=== PATIENT | female | born 1940 | race Hispanic/Latino ===

== ENCOUNTER 2018-09-13 09:09 | Emergency (ER) | payer MEDICARE ==
[~2018-09-13] VITALS: Ht 154.9 cm; Wt 67.1 kg
[~2018-09-13 09:09] MED LIST: ANUSOL-HC25 MG RC; CHLORTHALIDONE25 MG PO; FLAGYL500 MG PO; Guaifenesin/Dextromethorphan NG; LEVAQUIN500 MG PO; LISINOPRIL10 MG PO; OMEPRAZOLE40 MG PO; TAMIFLU75 MG PO; TESSALON PERLE100 MG PO
--- OUTSIDE RECORDS SUMMARY | 2018-09-13 09:14 | XMS REPORT | Continuity of Care Document ---
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 Role Phone [facility] [employer] Unavailable Unavailable Problems Problem Status Onset Date Classification Date Reported Comments Source INTERMITTENT SMALL BOWEL OBSTRUCTION, VE Active 03/16/2017 [facility] FLU LIKE SYMTOMS Active 03/16/2017 [facility] J20.9 - "ACUTE BRONCHITIS, UNSPECIFIED" Active 09/05/2016 [facility] Korbel M25.531 - PAIN IN RIGHT WRIST Active 01/26/2016 [facility] Korbel S46.091A - INJ MUSC/TEND THE ROTATOR CUF [facility] - PAIN IN RIGHT SHOULDER Active 09/[facility] M79.642 - PAIN IN LEFT HAND Active 08/23/[facility] 719.41 - JOINT PAIN-SHLD [facility] Acute renal insufficiency Active Problem 04/26/2017 [facility] Dehydration Active Problem 04/26/2017 [facility] Influenza A Active Problem 04/26/2017 [facility] Vomiting and diarrhea Active Problem 04/26/2017 [facility] Final: Pain in right shoulder 09/09/2015 [facility] GERD (Confirmed) Resolved Problem 05/09/2018 [facility]/O: HTN (Confirmed) Resolved Problem 05/09/2018 [facility] LT ELBOW Active [facility] [place] UNSP INTESTNL OBST, UNSP TO PARTIAL V Active [facility] VENTRAL HERNIA WITHOUT OBSTRUCTION OR GA Active [facility] PERSONAL HISTORY OF OTHER SPECIFIED COND Active [facility] Medications Medication Details Route Status Patient Instructions Ordering Provider Order Date Source Hydrocortisone Acetate (Anusol-Hc) 25 Mg Supp.rect Twice A Day Active [facility] 04/24/2017 [facility] Benzonatate (Tessalon Perle) 100 Mg Capsule Three Times A Day Active [facility] 04/23/2017 [facility] Guaifenesin/Dextromethorphan 5 Ml Liqd Every 6 Hours as needed for Cough Active [facility] 04/23/2017 [facility] Levofloxacin (Levaquin) 500 Mg Tablet Daily Active [facility] 04/23/2017 [facility] Metronidazole (Flagyl) 500 Mg Tablet Three Times A Day Active [facility] 04/23/2017 [facility] Oseltamivir Phosphate (Tamiflu) 75 Mg Cap Twice A Day Active [facility] 04/23/2017 [facility] Streptococcus pneumoniae serotype 1 capsular antigen diphtheria QAL099 protein conjugate vaccine / Streptococcus pneumoniae serotype 14 capsular antigen diphtheria IIN690 protein conjugate vaccine / Streptococcus pneumoniae serotype 18C capsular antigen d 0.5 mL, Route: IM, Drug Form: INJ, Daily, Start date: 03/17/17 9:00:00 [employer], Duration: 1 doses or times, Stop date: 03/17/17 9:00:00 CSTNotes: Shake well prior to use (Same as: Prevnar 13) Inactive 03/17/2017 [facility] Saline Flush 0.9% 10 ml, Route: IVP, Drug Form: INJ, Dosing Weight 68.182, kg, PRN, PRN Line Flush, Start date: 03/17/17 0:31:00 [employer], Duration: 30 day, Stop date: 04/16/17 0:30:00 CSTNotes: (Same as: BD Posiflush) No Longer Active 03/17/2017 [facility] Sodium Chloride 0.9% IV 1,000 mL 1,000 mL, Rate: 75 ml/hr, Infuse over: 13.3 hr, Route: IV, Dosing Weight 68.182 kg, Total Volume: 1,000, Start date: 03/17/17 0:31:00 [employer], Duration: 30 day, Stop date: 04/16/17 0:30:00 [employer], 1.73, m2 No Longer Active 03/17/2017 [facility] Ondansetron 4 mg, 2 mL, Route: IVP, Drug form: INJ, Q6H, Dosing Weight 68.182, kg, PRN Nausea & Vomiting, Start date: 03/17/17 0:31:00 [employer], Duration: 30 day, Stop date: 04/16/17 0:30:00 CSTNotes: (Same as: Zofran) MEDICATION WASTE Product Size: 4 mg Product Wasted: ___ mg No Longer Active 03/17/2017 [facility] Acetaminophen 325 MG / Hydrocodone Bitartrate 5 MG Oral Tablet 2 tab, Route: PO, Drug Form: TAB, Dosing Weight 68.182, kg, Q4H, PRN Pain Score 7-10, Start date: 03/17/17 0:31:00 [employer], Duration: 30 day, Stop date: 04/16/17 0:30:00 CSTNotes: (Same as: Mooers 325/5) Do not exceed 4gm/day of acetaminophen. No Longer Active 03/17/2017 [facility] Morphine 2 mg, 1 mL, Route: IVP, Drug form: SOLN, Q4H, Dosing Weight 68.182, kg, PRN Pain Score 7-10, Start date: 03/17/17 0:31:00 [employer], Duration: 30 day, Stop date: 04/16/17 0:30:00 [employer] No Longer Active 03/17/2017 [facility] lisinopril 10 mg oral tablet 10 mg=1 tab, PO, Daily, # 30 tab, 0 Refill(s) Active 03/17/2017 [facility] Chlorthalidone 25 MG Oral Tablet 25 mg=1 tab, PO, Daily, 0 Refill(s) Active 03/17/2017 [facility] D5NS 1,000 mL 1,000 mL, Rate: 100 ml/hr, Infuse over: 10 hr, Route: IV, Dosing Weight 68.182 kg, Total Volume: 1,000, Start date: 03/16/17 21:42:00 [employer], Stop date: 03/17/17 1:00:00 [employer] 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, 1.73, m2 No Longer Active 03/17/2017 [facility] Zofran 4 mg, Route: IVP, Drug form: INJ, ONCE, Dosing Weight 68.182, kg, Priority: STAT, Start date: 03/16/17 19:50:00 [employer] SAL[employer]AN, Stop date: 03/16/17 19:50:00 [employer] Inactive 03/17/2017 [facility] Morphine 2 mg, Route: IV, ONCE, Dosing Weight 68.182, kg, Priority: STAT, Start date: 03/16/17 19:50:00 [employer] SAL[employer]AN, Stop date: 03/16/17 19:50:00 [employer] Inactive 03/17/2017 [facility] NS (Bolus) IV 1,000 mL, 1,000 ml/hr, Infuse Over: 1 hr, Route: IV, ONCE, Priority: STAT, Dosing Weight 68.182 kg, Start date: 03/16/17 19:50:00 [employer] SAL[employer]AN, Stop date: 03/16/17 19:50:00 [employer] Inactive 03/17/2017 [facility] Saline Flush 0.9% 10 mL, Route: IVP, Drug Form: INJ, Dosing Weight 64.545, kg, PRN, PRN Line Flush, Start date: 03/16/17 15:39:00 [employer], Duration: 30 day, Stop date: 04/15/17 15:38:00 CSTNotes: (Same as: BD Posiflush) No Longer Active 03/16/2017 [facility] Chlorthalidone 25 Mg Tablet, 25 Mg Oral Daily Active 12/24/2016 [facility] Omeprazole 40 Mg Capsule.dr, 40 Mg Oral Daily Active 12/24/2016 [facility] Chlorthalidone 25 Mg Tablet Daily Active [facility] Lisinopril 10 Mg Tablet Daily Active [facility] Allergies, Adverse Reactions, Alerts No Known Medication Allergies Immunizations Immunization Date Given Site Status Last Updated Comments Source pneumococcal 13-valent vaccine 03/17/2017 Right Gluteus Medius completed [facility] Results Order Name Results Value Reference Range Date Interpretation Comments Source Automated blood basophil count (count/volume) Automated blood basophil count (count/volume) 0.0 0.0 - 0.1 04/26/2017 [facility] Automated blood basophil count as percentage of total leukocytes Automated blood basophil count as percentage of total leukocytes 0.4 0.0 - 1.0 04/26/2017 [facility] Automated blood eosinophil count Automated blood eosinophil count 0.2 0.0 - 0.4 04/26/2017 [facility] Automated blood eosinophil count as percentage of total leukocytes Automated blood eosinophil count as percentage of total leukocytes 3.6 0.0 - 6.0 04/26/2017 [facility] Automated blood hematocrit (volume fraction) Automated blood hematocrit (volume fraction) 29.2 34.2 - 44.1 04/26/2017 [facility] Automated blood lymphocyte count as percentage ot total leukocytes Automated blood lymphocyte count as percentage ot total leukocytes 27.9 18.0 - 39.1 04/26/2017 [facility] Automated blood monocyte count as percentage of total leukocytes Automated blood monocyte count as percentage of total leukocytes 9.7 4.4 - 11.3 04/26/2017 [facility] Automated blood neutrophil count Automated blood neutrophil count 3.1 2.1 - 6.9 04/26/2017 [facility] Automated blood platelet count (count/volume) Automated blood platelet count (count/volume) 127 140 - 360 04/26/2017 [facility] Automated blood segmented neutrophil count as percentage of total leukocytes Automated blood segmented neutrophil count as percentage of total leukocytes 58.0 38.7 - 80.0 04/26/2017 [facility] Automated erythrocyte mean corpuscular hemoglobin (mass per erythrocyte) Automated erythrocyte mean corpuscular hemoglobin (mass per erythrocyte) 29.3 28 - 32 04/26/2017 [facility] Automated erythrocyte mean corpuscular hemoglobin concentration measurement (mass/volume) Automated erythrocyte mean corpuscular hemoglobin concentration measurement (mass/volume) 34.6 31 - 35 04/26/2017 [facility] Automated erythrocyte mean corpuscular volume Automated erythrocyte mean corpuscular volume 84.6 81 - 99 04/26/2017 [facility] Blood erythrocytes automated count (number/volume) Blood erythrocytes automated count (number/volume) 3.45 3.6 - 5.1 04/26/2017 [facility] Blood hemoglobin measurement (moles/volume) Blood hemoglobin measurement (moles/volume) 10.1 12.0 - 16.0 04/26/2017 [facility] Blood leukocytes automated count (number/volume) Blood leukocytes automated count (number/volume) 5.35 4.8 - 10.8 04/26/2017 [facility] Blood lymphocytes count (number/volume) Blood lymphocytes count (number/volume) 1.5 1.0 - 3.2 04/26/2017 [facility] Blood monocytes automated count (number/volume) Blood monocytes automated count (number/volume) 0.5 0.2 - 0.8 04/26/2017 [facility] Estimated glomerular filtration rate (GFR) determination Estimated glomerular filtration rate (GFR) determination >60 60 04/26/2017 [facility] Glucose measurement Glucose measurement 73 74 - 118 04/26/2017 [facility] Serum or plasma anion gap Serum or plasma anion gap 16.0 8 - 16 04/26/2017 [facility] Serum or plasma calcium measurement (mass/volume) Serum or plasma calcium measurement (mass/volume) 7.9 8.4 - 10.2 04/26/2017 [facility] Serum or plasma carbon dioxide, total measurement (moles/volume) Serum or plasma carbon dioxide, total measurement (moles/volume) 22 22 - 29 04/26/2017 [facility] Serum or plasma chloride measurement (moles/volume) Serum or plasma chloride measurement (moles/volume) 105 98 - 107 04/26/2017 [facility] Serum or plasma creatinine measurement (mass/volume) Serum or plasma creatinine measurement (mass/volume) 0.75 0.57 - 1.11 04/26/2017 [facility] Serum or plasma potassium measurement (moles/volume) Serum or plasma potassium measurement (moles/volume) 3.0 3.5 - 5.1 04/26/2017 [facility] Serum or plasma sodium measurement (moles/volume) Serum or plasma sodium measurement (moles/volume) 140 136 - 145 04/26/2017 [facility] Serum or plasma urea nitrogen measurement (mass/volume) Serum or plasma urea nitrogen measurement (mass/volume) 7 7 - 26 04/26/2017 [facility] Serum or plasma urea nitrogen/creatinine mass ratio Serum or plasma urea nitrogen/creatinine mass ratio 9 6 - 25 04/26/2017 [facility] Red Cell Distribution Width 13.3 11.7 - 14.4 04/26/2017 [facility] IM GRANULOCYTES % 0.4 0.0 - 1.0 04/26/2017 [facility] Absolute Immature Granulocyte (auto 0.02 0 - 0.1 04/26/2017 [facility] Serum or plasma creatine kinase MB measurement (mass/volume) Serum or plasma creatine kinase MB measurement (mass/volume) 1.40 0.00 - 5.00 04/22/2017 [facility] Serum or plasma creatine kinase measurement (enzymatic activity/volume) Serum or plasma creatine kinase measurement (enzymatic activity/volume) 78 29 - 168 04/22/2017 [facility] Serum or plasma troponin i.cardiac measurement by detection limit <=0.01 NG/ml (mass/volume) Serum or plasma troponin i.cardiac measurement by detection limit <=0.01 NG/ml (mass/volume) 0.009 0 - 0.300 04/22/2017 [facility] Plasma globulin measurement (mass/volume) Plasma globulin measurement (mass/volume) 2.4 2.3 - 3.5 04/22/2017 [facility] Serum or plasma alanine aminotransferase measurement (enzymatic activity/volume) Serum or plasma alanine aminotransferase measurement (enzymatic activity/volume) 13 0 - 55 04/22/2017 [facility] Serum or plasma albumin measurement (mass/volume) Serum or plasma albumin measurement (mass/volume) 2.9 3.5 - 5.0 04/22/2017 [facility] Serum or plasma albumin/globulin mass ratio Serum or plasma albumin/globulin mass ratio 1.2 0.8 - 2.0 04/22/2017 [facility] Serum or plasma alkaline phosphatase measurement (enzymatic activity/volume) Serum or plasma alkaline phosphatase measurement (enzymatic activity/volume) 52 40 - 150 04/22/2017 [facility] Serum or plasma cholesterol in HDL measurement (mass/volume) Serum or plasma cholesterol in HDL measurement (mass/volume) 35 40 - 60 04/22/2017 [facility] Serum or plasma cholesterol in LDL measurement (mass/volume) Serum or plasma cholesterol in LDL measurement (mass/volume) 82 60 - 130 04/22/2017 [facility] Serum or plasma cholesterol measurement (mass/volume) Serum or plasma cholesterol measurement (mass/volume) 130 0 - 199 04/22/2017 [facility] Serum or plasma protein measurement (mass/volume) Serum or plasma protein measurement (mass/volume) 5.3 6.5 - 8.1 04/22/2017 [facility] Serum or plasma total bilirubin measurement (mass/volume) Serum or plasma total bilirubin measurement (mass/volume) 0.4 0.2 - 1.2 04/22/2017 [facility] Serum or plasma total cholesterol/cholesterol in HDL mass ratio Serum or plasma total cholesterol/cholesterol in HDL mass ratio 3.7 3.0 - 3.6 04/22/2017 [facility] Serum or plasma triglyceride measurement (mass/volume) Serum or plasma triglyceride measurement (mass/volume) 64 0 - 149 04/22/2017 [facility] Hemoglobin A1c Percent 6.3 4.0 - 7.0 04/22/2017 [facility] Aspartate Amino Transf (AST/SGOT) 20 5 - 34 04/22/2017 [facility] Influenza virus A and B antigen identification by immunofluorescence Influenza virus A and B antigen identification by immunofluorescence POSITIVE FLU A NEGATIVE 04/21/2017 [facility] Automated urine sediment leukocyte count by microscopy (number/high power field) Automated urine sediment leukocyte count by microscopy (number/high power field) <5 0 - 5 04/21/2017 [facility] Bacteria detection in urine sediment by light microscopy Bacteria detection in urine sediment by light microscopy RARE NONE 04/21/2017 [facility] Epithelial cells detection in urine sediment by light microscopy Epithelial cells detection in urine sediment by light microscopy FEW NONE 04/21/2017 [facility] Erythrocytes detection in urine sediment by light microscopy Erythrocytes detection in urine sediment by light microscopy <5 0 - 5 04/21/2017 [facility] Hyaline casts detection in urine sediment by light microscopy Hyaline casts detection in urine sediment by light microscopy <5 0 - 1 04/21/2017 [facility] Serum or plasma magnesium measurement (mass/volume) Serum or plasma magnesium measurement (mass/volume) 1.7 1.3 - 2.1 04/21/2017 [facility] Specific gravity of Urine by Test strip Specific gravity of Urine by Test strip 1.025 1.010 - 1.025 04/21/2017 [facility] Urine clarity Urine clarity HAZY CLEAR 04/21/2017 [facility] Urine color determination Urine color determination BILL YELLOW 04/21/2017 [facility] Urine erythrocytes detection Urine erythrocytes detection NEGATIVE NEGATIVE 04/21/2017 [facility] Urine glucose detection Urine glucose detection NEGATIVE NEGATIVE 04/21/2017 [facility] Urine ketones detection by automated test strip Urine ketones detection by automated test strip NEGATIVE NEGATIVE 04/21/2017 [facility] Urine leukocyte esterase detection by dipstick Urine leukocyte esterase detection by dipstick 1+ NEGATIVE 04/21/2017 [facility] Urine nitrite detection Urine nitrite detection NEGATIVE NEGATIVE 04/21/2017 [facility] Urine pH measurement by automated test strip Urine pH measurement by automated test strip 5 5 - 7 04/21/2017 [facility] Urine protein measurement by test strip (mass/volume) Urine protein measurement by test strip (mass/volume) 1+ NEGATIVE 04/21/2017 [facility] Urine total bilirubin measurement (mass/volume) Urine total bilirubin measurement (mass/volume) 1+ NEGATIVE 04/21/2017 [facility] Urine urobilinogen measurement by test strip (mass/volume) Urine urobilinogen measurement by test strip (mass/volume) 0.2 0.2 - 1 04/21/2017 [facility] Activated partial thromboplastin time (aPTT) in platelet poor plasma bycoagulation assay Activated partial thromboplastin time (aPTT) in platelet poor plasma bycoagulation assay 35.8 23.8 - 35.5 04/21/2017 [facility] INR in Platelet poor plasma by Coagulation assay INR in Platelet poor plasma by Coagulation assay 1.03 04/21/2017 [facility] Prothrombin time (PT) in platelet poor plasma by coagulation assay Prothrombin time (PT) in platelet poor plasma by coagulation assay 14.0 11.9 - 14.5 04/21/2017 [facility] B-Type Natriuretic Peptide 40.5 0 - 100 04/21/2017 [facility] CHEM PANEL Magnesium Lvl 1.8 1.8 - 2.4 03/17/2017 [facility] CHEM PANEL eGFR 70 03/17/2017 Result Comment: The eGFR is calculated using the CKD-EPI formula. In most young, healthy individuals the eGFR will be >90 mL/min/1.73m2. The eGFR declines with age. An eGFR of 60-89 may be normal in some populations, particularly the elderly, for whom the CKD-EPI formula has not been extensively validated. Use of the eGFR is not recommended in the following populations:

Individuals with unstable creatinine concentrations, including patients and those with serious co-morbid conditions.

Patients with extremes in muscle mass or diet.

The data above are obtained from the National Kidney Disease Education Program (NKDEP) which additionally recommends that when the eGFR is used in patients with extremes of body mass index for purposes of drug dosing, the eGFR should be multiplied by the estimated BMI. [facility] CHEM PANEL Glucose Lvl 140 70 - 99 03/17/2017 [facility] CHEM PANEL Bili Total 0.3 0.2 - 1.3 03/17/2017 [facility] CHEM PANEL Alk Phos 68 39 - 136 03/17/2017 [facility] CHEM PANEL A/G Ratio 0.8 0.7 - 1.6 03/17/2017 [facility] CHEM PANEL AST 14 0 - 37 03/17/2017 [facility] CHEM PANEL ALT 20 0 - 65 03/17/2017 [facility] CHEM PANEL Globulin 3.1 2.7 - 4.2 03/17/2017 [facility] CHEM PANEL Calcium Lvl 7.5 8.5 - 10.5 03/17/2017 [facility] CHEM PANEL AGAP 9.4 10.0 - 20.0 03/17/2017 [facility] CHEM PANEL CO2 27 24 - 32 03/17/2017 [facility] CHEM PANEL Total Protein 5.6 6.4 - 8.4 03/17/2017 [facility] CHEM PANEL B/C Ratio 20 6 - 25 03/17/2017 [facility] CHEM PANEL BUN 16 7 - 22 03/17/2017 [facility] CHEM PANEL Albumin Lvl 2.5 3.5 - 5.0 03/17/2017 [facility] CHEM PANEL Creatinine Lvl 0.80 0.50 - 1.40 03/17/2017 [facility] CHEM PANEL Sodium Lvl 141 135 - 145 03/17/2017 [facility] CHEM PANEL Chloride Lvl 108 95 - 109 03/17/2017 [facility] CHEM PANEL Potassium Lvl 3.4 3.5 - 5.1 03/17/2017 [facility] HEMATOLOGY Eosinophils 3.1 0.0 - 4.0 03/17/2017 [facility] HEMATOLOGY Lymphocytes 23.3 20.0 - 40.0 03/17/2017 [facility] HEMATOLOGY Monocytes 10.9 2.0 - 12.0 03/17/2017 [facility] HEMATOLOGY Lymphocytes # 1.9 1.0 - 5.5 03/17/2017 [facility] HEMATOLOGY Eosinophils # 0.2 0.0 - 0.5 03/17/2017 [facility] HEMATOLOGY Monocytes # 0.9 0.0 - 0.8 03/17/2017 [facility] HEMATOLOGY Basophils 0.5 0.0 - 1.0 03/17/2017 [facility] HEMATOLOGY Segs-Bands # 5.0 1.5 - 8.1 03/17/2017 [facility] HEMATOLOGY Segs 62.2 45.0 - 75.0 03/17/2017 [facility] HEMATOLOGY MCV 86.1 80.0 - 98.0 03/17/2017 [facility] HEMATOLOGY MCH 29.2 27.0 - 31.0 03/17/2017 [facility] HEMATOLOGY RDW 13.4 11.5 - 14.5 03/17/2017 [facility] HEMATOLOGY MCHC 34.0 32.0 - 36.0 03/17/2017 [facility] HEMATOLOGY Hct 31.5 36.0 - 48.0 03/17/2017 [facility] HEMATOLOGY WBC 8.1 3.7 - 10.4 03/17/2017 [facility] HEMATOLOGY MPV 8.2 7.4 - 10.4 03/17/2017 [facility] HEMATOLOGY Platelet 146 133 - 450 03/17/2017 [facility] HEMATOLOGY RBC 3.66 4.20 - 5.40 03/17/2017 [facility] HEMATOLOGY Hgb 10.7 12.0 - 16.0 03/17/2017 [facility] URINE AND STOOL UA WBC 2 0 - 5 03/16/2017 [facility] URINE AND STOOL UA Renal Epi 6 <=0 /LPF 03/16/2017 [facility] URINE AND STOOL UA Bacteria Occasional /HPF None Seen /HPF 03/16/2017 [facility] URINE AND STOOL UA RBC 2 0 - 2 03/16/2017 [facility] URINE AND STOOL UA Urobilinogen <=1.0 mg/dL 0.1 - 1.0 03/16/2017 [facility] URINE AND STOOL UA Bili Negative *NA* (03/16/17 5:15 PM) Negative 03/16/2017 [facility] URINE AND STOOL UA Ketones Negative mg/dL Negative mg/dL 03/16/2017 [facility] URINE AND STOOL UA Glucose Negative mg/dL Negative mg/dL 03/16/2017 [facility] URINE AND STOOL UA Protein Negative mg/dL Negative mg/dL 03/16/2017 [facility] URINE AND STOOL UA pH 5.0 5.0 - 8.0 03/16/2017 [facility] URINE AND STOOL UA Leuk Est Trace *ABN* (03/16/17 5:15 PM) Negative 03/16/2017 [facility] URINE AND STOOL UA Nitrite Negative (03/16/17 5:15 PM) Negative 03/16/2017 [facility] URINE AND STOOL UA Blood Negative (03/16/17 5:15 PM) Negative 03/16/2017 [facility] URINE AND STOOL UA Spec Grav 1.010 <=1.030 03/16/2017 [facility] URINE AND STOOL UA Sq Epi Moderate /LPF Few /LPF 03/16/2017 [facility] URINE AND STOOL UA Turbidity Clear (03/16/17 5:15 PM) Clear 03/16/2017 [facility] URINE AND STOOL UA Color Yellow *NA* (03/16/17 5:15 PM) Yellow 03/16/2017 [facility] CARDIAC ENZYMES Troponin-I <0.02 0.00 - 0.40 03/16/2017 [facility] CARDIAC ENZYMES CK MB 0.9 0.5 - 3.6 03/16/2017 [facility] CARDIAC ENZYMES Total CK 59 12 - 191 03/16/2017 [facility] CARDIAC ENZYMES CK MB Index 1.5 0.0 - 2.5 03/16/2017 [facility] CHEM PANEL Magnesium Lvl 2.0 1.8 - 2.4 03/16/2017 [facility] CHEM PANEL Lipase Lvl 178 73 - 393 03/16/2017 [facility] CHEM PANEL eGFR 53 03/16/2017 Result Comment: The eGFR is calculated using the CKD-EPI formula. In most young, healthy individuals the eGFR will be >90 mL/min/1.73m2. The eGFR declines with age. An eGFR of 60-89 may be normal in some populations, particularly the elderly, for whom the CKD-EPI formula has not been extensively validated. Use of the eGFR is not recommended in the following populations:

Individuals with unstable creatinine concentrations, including patients and those with serious co-morbid conditions.

Patients with extremes in muscle mass or diet.

The data above are obtained from the National Kidney Disease Education Program (NKDEP) which additionally recommends that when the eGFR is used in patients with extremes of body mass index for purposes of drug dosing, the eGFR should be multiplied by the estimated BMI. [facility] CHEM PANEL Globulin 4.0 2.7 - 4.2 03/16/2017 [facility] CHEM PANEL A/G Ratio 0.8 0.7 - 1.6 03/16/2017 [facility] CHEM PANEL Chloride Lvl 101 95 - 109 03/16/2017 [facility] CHEM PANEL Sodium Lvl 137 135 - 145 03/16/2017 [facility] CHEM PANEL Potassium Lvl 3.6 3.5 - 5.1 03/16/2017 [facility] CHEM PANEL Bili Total 0.3 0.2 - 1.3 03/16/2017 [facility] CHEM PANEL Total Protein 7.2 6.4 - 8.4 03/16/2017 [facility] CHEM PANEL CO2 28 24 - 32 03/16/2017 [facility] CHEM PANEL Calcium Lvl 8.4 8.5 - 10.5 03/16/2017 [facility] CHEM PANEL Glucose Lvl 139 70 - 99 03/16/2017 [facility] CHEM PANEL BUN 22 7 - 22 03/16/2017 [facility] CHEM PANEL Creatinine Lvl 1.01 0.50 - 1.40 03/16/2017 [facility] CHEM PANEL AST 20 0 - 37 03/16/2017 [facility] CHEM PANEL Alk Phos 88 39 - 136 03/16/2017 [facility] CHEM PANEL ALT 27 0 - 65 03/16/2017 [facility] CHEM PANEL B/C Ratio 22 6 - 25 03/16/2017 [facility] CHEM PANEL Albumin Lvl 3.2 3.5 - 5.0 03/16/2017 [facility] CHEM PANEL AGAP 11.6 10.0 - 20.0 03/16/2017 [facility] HEMATOLOGY MPV 8.6 7.4 - 10.4 03/16/2017 [facility] HEMATOLOGY Platelet 185 133 - 450 03/16/2017 [facility] HEMATOLOGY MCV 86.8 80.0 - 98.0 03/16/2017 [facility] HEMATOLOGY MCH 29.0 27.0 - 31.0 03/16/2017 [facility] HEMATOLOGY Hct 37.7 36.0 - 48.0 03/16/2017 [facility] MCHC 33.4 32.0 - 36.0 03/16/2017 [facility] RDW 13.6 11.5 - 14.5 03/16/2017 [facility] HEMATOLOGY WBC 8.8 3.7 - 10.4 03/16/2017 [facility] HEMATOLOGY RBC 4.34 4.20 - 5.40 03/16/2017 [facility] HEMATOLOGY Hgb 12.6 12.0 - 16.0 03/16/2017 [facility] HEMATOLOGY Segs-Bands # 6.1 1.5 - 8.1 03/16/2017 [facility] HEMATOLOGY Basophils 0.5 0.0 - 1.0 03/16/2017 [facility] HEMATOLOGY Lymphocytes # 1.6 1.0 - 5.5 03/16/2017 [facility] HEMATOLOGY Eosinophils # 0.2 0.0 - 0.5 03/16/2017 [facility] HEMATOLOGY Monocytes # 0.8 0.0 - 0.8 03/16/2017 [facility] HEMATOLOGY Eosinophils 2.0 0.0 - 4.0 03/16/2017 [facility] HEMATOLOGY Segs 69.3 45.0 - 75.0 03/16/2017 [facility] HEMATOLOGY Lymphocytes 18.6 20.0 - 40.0 03/16/2017 [facility] HEMATOLOGY Monocytes 9.6 2.0 - 12.0 03/16/2017 [facility] Pathology Reports No Data Provided for This Section Diagnostic Reports Report Value Date Source Shoulder series DX Exam: Left shoulder x-ray, 3 views Reason for Exam: - left shoulder pain Comparison Exam: None Discussion: No acute bony abnormality seen of the left shoulder. The glenohumeral joint is intact. 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 Patient is status post rotator cuff repair. No suspicious osteoblastic or osteolytic lesions. The visualized portions of the left rib cage and left lung are unremarkable. Impression: 1. No acute bony abnormality seen of the left shoulder. 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 09/11/2018 [facility] Chest 2 views DX EXAM: Chest 2 views DX HISTORY: - basal pneumonia COMPARISON: 03/16/2017 No focal pneumonia. Stable appearance of the lungs. Upper normal heart size. No effusion or pneumothorax. No acute osseous lesion. IMPRESSION: No radiographic evidence of pneumonia. 05/06/2018 [facility] Abdomen AP DX Study: Abdomen, single view Clinical Indication: - partial SBO Comparison: CT abdomen and pelvis from 03/16/2017 FINDINGS: Single view of the abdomen shows a nonobstructive bowel gas pattern. Surgical clips in the right upper quadrant are seen. No suspicious abdominal calcifications are noted. Degenerative changes of the lumbar spine are present. IMPRESSION: Nonobstructive bowel gas pattern. SL: [id number] 03/17/2017 [facility] Abdomen/Pelvis w IV contrast CT EXAM: CT abdomen and pelvis HISTORY: Abdominal pain, vomiting and diarrhea, question hernia COMPARISON: CT 08/31/2009 TECHNIQUE: Axial images of the abdomen and pelvis with sagittal and coronal reformats. 75 mL Visipaque IV contrast. DLP: [id number] FINDINGS: 1. Small right femoral hernia containing a few small bowel loops with mild distention of a few distal small bowel loops may reflect a developing small bowel obstruction. 2. Several fat-containing ventral hernias with fascial defect measuring approximately 6 cm transverse. 3. Diverticulosis sigmoid colon without diverticulitis. 4. Hysterectomy with pelvic floor laxity, mild bladder prolapse. 5. Cholecystectomy with physiological biliary prominence, correlate with LFT. 6. Mild compression fracture superior endplate L2 is probably old, correlate for focal pain. Degenerative grade 2 spinal spondylolisthesis L4. 7. Mild fatty change of the liver. Tiny cyst right kidney. Mild cortical scarring of the kidneys. The spleen, adrenals and pancreas are unremarkable. No free air or free fluid. No adenopathy. Coronary artery calcifications. SL: [id number] 03/16/2017 [facility] Chest 1view DX Patient Name: REGAN PATEL : 1940; Age: 77 years y/o Female MR: [id number] Study: Chest 1view DX 03/16/2017 3:39 PM [employer] Ordering Physician: Clinical Indication: - L lower chest, LUQ abd pain; Comparison: 09/05/2016 Chest one view Lungs are clear. Mild cardiomegaly without overt congestive heart failure or pulmonary edema. No pleural effusion or pneumothorax is evident. Tortuous thoracic aorta as before. Mediastinal contours are otherwise stable. No acute bony abnormality. IMPRESSION: Baseline appearance of the chest. No specific new or acute findings. SL: MIHAELA 03/16/2017 [facility] Knee 1-2 Views Bilateral DX Exam: Right and left knee x- rays, 2 views each Reason for Exam: - knee pain Comparison Exam: MRI right knee 12/06/2008 Discussion: Right: No acute bony abnormalities. Moderate osteoarthritis is seen within the medial compartment. No suspicious osteoblastic or osteolytic lesions. Left: No acute bony abnormalities. Advanced osteoarthritis is seen within the medial compartment. No suspicious osteoblastic or osteolytic lesions. Impression: 1. Bilateral osteoarthritis as detailed above. 11/07/2016 [facility] Chest 2 views DX Exam: Two-view chest x-ray Reason for Exam: - bronchitis Comparison Exam: None Discussion: Cardiomediastinal silhouette is within normal limits. Both hemidiaphragms well visualized. No pulmonary edema or pleural effusions. Ill-defined airspace consolidation seen overlying the left lower lung. Correlate for infectious etiology. Trachea is midline. No acute bony abnormalities. Impression: 1. Ill-defined airspace consolidation seen overlying the left lower lung. Correlate for infectious etiology. 09/05/2016 [facility] Wrist complete DX Exam: Right wrist x-ray, 3 views Reason for exam: wrist pain status post fall Comparison exam: None Discussion: No fractures or dislocations are seen within the right wrist. The joint spaces are preserved. No suspicious intraosseous lesions. No radiopaque foreign bodies. Impression: 1. No acute bony abnormalities identified. 01/26/2016 [facility]ENN[facility] Shoulder wo contrast MRI EXAMINATION: MR right shoulder without contrast HISTORY: S46.091A Other injury of muscle(s) and tendon(s) of the rotator cuff of right shoulder, initial encounter; right shoulder pain and limited range of motion status post fall; right rotator cuff tear FINDINGS: Radiographs dated 09/06/2015 are reviewed. Multiplanar, multisequence magnetic resonance imaging of the right shoulder is performed with a local coil. Transverse, oblique coronal, and oblique sagittal images are obtained. Biceps: The intra-articular biceps tendon is not well visualized with likely intra-articular biceps tendon rupture and underlying severe intra-articular biceps tendinopathy. Labrum: There is a large degenerative SLAP tear involving the superior, posterosuperior, and posterior glenoid labrum. The anterior and inferior glenoid labrum is intact. Rotator cuff tendons: There is a full-thickness tear involving the entire supraspinatus tendon and anterior fibers of the infraspinatus tendon measuring approximately 2.7 cm in anteroposterior dimension with medial retraction of the torn tendinopathy distal tendon fibers by 3 cm and retraction of the supraspinatus myotendinous junction to the level of the glenoid. There is a partial thickness interstitial delaminating component extending along the infraspinatus myotendinous junction. There is underlying severe supraspinatus and infraspinatus tendinosis. The teres minor tendon is intact. There is mild to moderate subscapularis tendinosis without discrete tear. Acromio-osseous outlet: There is a type II acromion without a subacromial spur. The coracoacromial and coracoclavicular ligaments are intact. Muscles: There is mild to moderate fatty infiltration of the supraspinatus and infraspinatus muscles, most severely involving the infraspinatus muscle. The teres minor and subscapularis muscles are normal in signal intensity and muscle bulk. Cartilage: There is severe degenerative arthrosis of the acromioclavicular joint with associated full-thickness chondrosis, extensive subchondral cyst formation and edema, and capsular hypertrophy. There is partial-thickness chondrosis along the inferomedial humeral head. Bone: Note is made of a narrowed coracohumeral distance measuring approximately 0.7 cm predisposing to subcoracoid impingement. There are no acute fractures. Subchondral edema and cyst formation is noted at the acromioclavicular joint. There are no suspicious bone marrow replacing lesions. Soft tissue: There is a moderate sized glenohumeral joint effusion with synovitis. The joint effusion freely communicates with the subacromial subdeltoid bursa through the full-thickness rotator cuff defect. There is a multiloculated ganglion cyst along the superior aspect of the right acromial clavicular joint. IMPRESSION: 1. Full-thickness tear involving the entire right supraspinatus tendon and anterior fibers of the right infraspinatus tendon measuring approximately 2.7 cm in anteroposterior dimension with medial retraction of the torn distal tendon fibers by 3 cm and retraction of the supraspinatus myotendinous junction to the level of the glenoid. There is also a partial-thickness, interstitial, delaminating component extending along the right infraspinatus myotendinous junction. There is underlying severe right supraspinatus and infraspinatus tendinosis with mild to moderate fatty infiltration of the supraspinatus and infraspinatus muscles. 2. Mild to moderate right subscapularis tendinosis without discrete tear. Note is made of a narrow coracohumeral distance measuring approximately 0.7 cm predisposing to subcoracoid impingement. 3. Likely intra-articular biceps tendon rupture with underlying severe right intra- articular biceps tendinopathy. 4. Large degenerative right glenoid labral SLAP tear involving the superior, posterior superior, and posterior right glenoid labrum. 5. Mild partial-thickness chondrosis along the inferomedial right humeral head at the glenohumeral joint. 6. Severe right acromioclavicular degenerative arthrosis with a multiloculated ganglion cyst along the superior aspect of the joint. 7. Moderate-sized right glenohumeral joint effusion with synovitis. This effusion communicates with the subacromial subdeltoid bursa through the full-thickness rotator cuff defect. 09/16/2015 [facility] Shoulder series DX EXAM: Shoulder series DX HISTORY: shoulder pain COMPARISON: None 3 views of the right shoulder. There are small calcifications adjacent to the greater tuberosity consistent with calcific tendinitis. Mild AC joint degenerative change. No fracture or dislocation. IMPRESSION: Degenerative change as above. 09/06/2015 [facility]ENN[facility] Wrist complete DX Left wrist x-ray series 3 views History: 25-year-old with wrist pain. Findings: The distal radius and ulna are aligned. The radiocarpal joint space is maintained. The carpal bones are aligned in the distances between the scaphoid and lunate and lunate and triquetrum are similar. No soft tissue radiodensities or calcifications noted. Impression: Unremarkable left wrist x-ray series. 08/23/2015 [facility] Hand 3 views DX LEFT HAND X-RAY 3 VIEWS History: 75-year-old female with hand pain. Findings: The digits and metacarpals are aligned. There is no fracture or acute injury pattern. The proximal and distal interphalangeal joint spaces and metacarpophalangeal joints are mild narrowed suggesting cartilage loss and early osteoarthritis. The carpal bones are intact. No soft tissue calcifications seen. Impression: No acute bone injury to left hand. Mild osteoarthritic changes at the interphalangeal joints. 08/23/2015 [facility] Elbow 3 views EXAM: ELBOW 3 VIEWS Elbow 3 views DATE: Order Observation End Time: July 29, 2012 11:59:44 AM INDICATION: Pain. 719.42 Pain in Joint Involving Upper Arm TECHNIQUE: AP, lateral and oblique radiographs of the left elbow. COMPARISON: None available FINDINGS: Radial head subluxation is present. No adjacent fractures of joint effusion. IMPRESSION: Radial head subluxation is present with no adjacent soft tissue abnormality. 07/29/2012 [facility] Consultation Notes No Data Provided for This Section Discharge Summaries No Data Provided for This Section History and Physicals No Data Provided for This Section Vital Signs Vital Sign Value Date Comments Source Systolic (mm Hg) 114 03/17/2017 [facility] Diastolic (mm Hg) 68 03/17/2017 [facility] Temperature Oral (F) 98.3 F 03/17/2017 [facility] Heart Rate 68 03/17/2017 [facility] Systolic (mm Hg) 124 03/17/2017 [facility] Diastolic (mm Hg) 62 03/17/2017 [facility] Temperature Oral (F) 98.5 F 03/17/2017 [facility] Temperature Oral (F) 97.6 F 03/17/2017 [facility] Systolic (mm Hg) 125 03/17/2017 [facility] Diastolic (mm Hg) 73 03/17/2017 [facility] Respitory Rate 15 03/17/2017 [facility] Respitory Rate 18 03/17/2017 [facility] Height 152.4 cm 03/16/2017 [facility] BMI Calculated 29.36 03/16/2017 [facility] Weight 68.182 03/16/2017 [facility] Respitory Rate 18 03/16/2017 [facility] Heart Rate 79 03/16/2017 [facility] Encounters Location Location Details Encounter Type Encounter Number Reason For Visit Attending Provider ADM Date DC Date Status Source [facility] [id number] Fritz Terrazas 08/23/2015 08/24/2015 [facility] [id number] Fritz Terrazas 09/06/2015 09/07/2015 [facility] [id number] Claus Sam 09/16/2015 09/17/2015 [facility] [id number] [facility] 01/26/2016 01/27/2016 [facility] [id number] [facility] 09/05/2016 09/06/2016 [facility] [id number] [facility] 11/07/2016 11/08/2016 [facility] [id number] CLAUS SAM MD 12/26/2016 [facility] Observation [id number] Job [facility] 03/16/2017 03/17/2017 [facility] Discharged Inpatient [id number] XIANG SOOD MD 04/24/2017 04/26/2017 [facility] [id number] [facility] 05/06/2018 05/07/2018 [facility] OD [id number] 719.41 - JOINT PAIN-SHLD GALE GREY Cancel OPID Eduardo TH [id number] LT ELBOW SHERRIE BARTH Active [facility] Procedures Procedure Code Date Perfomer Comments Source Computed tomography of abdomen and pelvis with contrast [id number] 04/24/[address] [facility] CT of abdomen and pelvis without contrast [id number] 04/21/2017 WHIT [facility] KNEE ARTHROSCOPY/SURGERY 70868 12/26/2016 GRICELDA [facility] Carpal tunnel decompression [id number] [facility] Procedure<sup>1</sup> [id number] Rightr rotator cuff, carpal tunnel [facility] Rotator cuff repair [id number] [facility] [place] Carpal tunnel decompression [id number] [facility] Procedure<sup>1</sup> [id number] Rightr rotator cuff, carpal tunnel [facility] Rotator cuff repair [id number] [facility] Assessment and Plan Assessment and Plan Date Source Extracted from:Title: General Surgery Author: Anmol Graf MD Date: 03/17/17 Impression and Plan 1) Fat-containing ventral hernia 2) Right femoral hernia 3) partial small bowel obstruction, appears to be resolved 4) generalized weakness/malaise 5) Influenza recently --I discussed with the patient extensively using the video language line that although she has the right femoral hernia and a ventral hernia, these are not emergency cases that needs to be done today. I think the bowel obstruction is resolved but will get KUB this morning. -- I also told her that I strongly recommend she has surgery for the right femoral hernia since she had not had any intervention done for the ventral hernia she has know about for years. I did tell her that I would repair the ventral hernia and the right femoral hernia at the same time if possible but I would need for her to be medically optimized and stronger to undergo surgery. If the optimization happens during this hospitalization and she is stronger early next week that she have surgery next week. Or she could be discharged to follow with her primary physician for medical optimization and clearance, follow-up with me as outpatient and she will be scheduled for surgery. At this point patient became tearful, stating that she came here for help and she wants help. If she has a hernia she wants to have it repaired. I again reiterated that she will need surgery but it is not an emergency that needs to be done during his holiday break due to schedule. Plus she needs to be medically opt imized and stronger to undergo strong. Currently she is with increased risk of post operative complications that includes pneumonia and debilitation. I will defer medical optimization to primary service and/or primary care physician. Thank you for this consultation. I will continue to follow the patient with you. From general surgical standpoint, she could be started on a clear liquid diet and advance as tolerated. 03/17/2017 [facility] Plan of Care Plan of Care Date Source Discharge Date 04/26/17 12:24pm Disposition HOME, SELF-CARE Instructions/Education Provided Dehydration - Adult Prescriptions See Medication Section Referrals PCP (Internal Medicine) Order Date: 5-7 Days Entered Date: 04/23/2017 6:31am CHARLENE FINLEY MD (Gastroenterology) Order Date: 5-7 Days Entered Date: 04/24/2017 7:21am Address: [address] [place], [place] [id number] 04/26/2017 [facility] Social History Social History Date Source Social History Problem Response Recorded Date/Time Onset Date Status Hx Psychiatric Problems No 04/22/2017 12:00am Not Applicable Not Applicable Hx Eating Disorder No 04/22/2017 12:00am Not Applicable Not Applicable Hx Substance Use Disorder No 04/22/2017 12:00am Not Applicable Not Applicable Hx Depression No 04/22/2017 12:00am Not Applicable Not Applicable Hx Alcohol Use No 04/22/2017 12:00am Not Applicable Not Applicable Hx Substance Use Treatment No 04/22/2017 12:00am Not Applicable Not Applicable Hx Physical Abuse No 04/22/2017 12:00am Not Applicable Not Applicable Smoking Status Start Date Stop Date Never Smoker 04/26/2017 [facility] Social History TypeResponse Alcohol Never Smoking Status Never smoker; Exposure to Tobacco Smoke None; Cigarette Smoking Last 365 Days No; Reg Smoking Cessation Counseling No entered on: 03/16/17 03/17/2017 [facility] Social History TypeResponse Alcohol Never Smoking Status Never smoker; Exposure to Tobacco Smoke None; Cigarette Smoking Last 365 Days No; Reg Smoking Cessation Counseling No 03/17/2017 [facility] Family History No Data Provided for This Section Advance Directives Order Name Results Value Date Source Advance Directives Advance Directives Directive Response Recorded Date/Time Does the patient have an advance directive? No 04/22/17 12:00am If yes, is advance directive on file with [facility]? No 11/01/15 10:12am If not on file with [facility] will patient provide a copy? Yes 12/24/16 9:33am Do you have a Directive to Physician? No 04/21/17 7:13pm Do you have a Medical Power of Bulker? No 04/21/17 7:13pm Do you have an out of hospital Do Not Resuscitate Order? No 04/21/17 7:13pm Do you have any special needs we should be aware of? No 04/21/17 7:13pm Do you have a support person here with you today? Yes 04/21/17 7:13pm Did patient receive Notice of Privacy Practices? Yes 04/21/17 7:13pm Did patient receive patient rights and responsibilities? Yes 04/21/17 7:13pm 04/26/2017 [facility] Functional Status No Data Provided for This Section
--- OUTSIDE RECORDS SUMMARY | 2018-09-13 09:15 | XMS REPORT | Summary of Care ---
Author Author [facility] [place] Organization [facility] [place] Address Unknown Phone Unavailable Encounter HQ Fabian(FIN) [phone] Date(s): 05/06/18 - 05/06/18 [facility] [place] [address] [place] [phone] Discharge Disposition: Home or Self Care Attending Physician: Fritz Terrazas MD Referring Physician: Fritz Terrazas MD Vital Signs No data available for this section Problem List Condition Effective Dates Status Health Status Informant GERD Resolved (gastroesophageal reflux disease)(Confirmed) H/O: HTN Resolved (hypertension)(Confi rmed) Allergies, Adverse Reactions, Alerts Substance Reaction Severity Status NKDA Active Medications No data available for this section Results No data available for this section Immunizations Given and Recorded Vaccine Date Status Refusal Reason pneumococcal 13-valent vaccine 03/17/17 Given Procedures Procedure Date Related Diagnosis Body Site Status Carpal tunnel decompression Completed Procedure1 Completed Rotator cuff repair Completed 1Rightr rotator cuff, carpal tunnel Social History Social History Type Response Alcohol Never Smoking Status Never smoker; Exposure to Tobacco Smoke None; Cigarette Smoking Last 365 Days No; Reg Smoking Cessation Counseling No entered on: 03/16/17 Assessment and Plan No data available for this section
--- OUTSIDE RECORDS SUMMARY | 2018-09-13 09:15 | XMS REPORT | Summary of Care ---
Author Author [facility] [place] Organization [facility] [place] Address Unknown Phone Unavailable Encounter HQ Encntr_alias(FIN) [phone] Date(s): 11/07/16 - 11/07/16 [facility] [place] [address] [place] [phone] Discharge Disposition: Home or Self Care Attending Physician: Fritz Terrazas MD Vital Signs No data available for this section Problem List No data available for this section Allergies, Adverse Reactions, Alerts Substance Reaction Severity Status NKDA Active Medications No data available for this section Results No data available for this section Immunizations No data available for this section Procedures No data available for this section Social History Social History Type Response Assessment and Plan No data available for this section
--- OUTSIDE RECORDS SUMMARY | 2018-09-13 09:15 | XMS REPORT | Summary of Care ---
Author Author [facility] [place] [facility] [place] Address Unknown Phone Unavailable Encounter HQ Encntr_alias(FIN) [phone] Date(s): 01/26/16 - 01/26/16 [facility] [place] [address] [place] [address] [phone] Discharge Disposition: Home or Self Care Attending [...]
--- OUTSIDE RECORDS SUMMARY | 2018-09-13 09:15 | XMS REPORT | CCD ---
Author Author Auto Generated Organization [facility] Outpatient [facility] - [place] Address Unknown Phone Unavailable Care Team Providers Care Rack Puller Name Role Phone Shaggy Vernon CP Allergies, Adverse Reactions, Alerts Substance Reaction Status NKDA Active
--- OUTSIDE RECORDS SUMMARY | 2018-09-13 09:15 | XMS REPORT | CCD ---
Author Author Auto Generated Organization [facility] Outpatient Imaging [place] Address Unknown Phone Unavailable Care Team Providers Care Carpet Yarn Winder Operator Name Role Phone Remy Hodges CP Allergies, Adverse Reactions, Alerts Substance Reaction Status NKDA Active
--- OUTSIDE RECORDS SUMMARY | 2018-09-13 09:15 | XMS REPORT | Summary of Care ---
Author Author [facility] - [place] Organization [facility] [place] Address Unknown Phone Unavailable Encounter HQ Encntr_alias(FIN) [id number] Date(s): 08/23/15 - 08/23/15 [facility] [place] [address] [place], [place] [id number] [place] [address] [phone] Discharge Disposition: Home Attending Physician: Fritz Terrazas MD Vital Signs [...]
--- OUTSIDE RECORDS SUMMARY | 2018-09-13 09:15 | XMS REPORT | Summary of Care ---
Author Author [facility] Out[facility] - [place] [facility] [place] Address Unknown Phone Unavailable Encounter HQ Encntr_alienio(FIN) [id number] Date(s): 09/06/15 - 09/06/15 [facility] - [place] [address] [place] [address]- [phone] Final: Pain in right shoulder Discharge Disposition: Home Attending Physician: Fritz Terrazas [...]
--- OUTSIDE RECORDS SUMMARY | 2018-09-13 09:15 | XMS REPORT | Summary of Care ---
Author Author [facility] - [place] Organization [facility] [place] Address Unknown Phone Unavailable Encounter HQ Encntr_alias(FIN) [phone] Date(s): 09/16/15 - 09/16/15 [facility] - [place] [address] [place] [phone] Discharge Disposition: Home Attending Physician: Claus Sam MD Vital Signs No data available for [...]
--- OUTSIDE RECORDS SUMMARY | 2018-09-13 09:15 | XMS REPORT | Summary of Care ---
Author Author [facility] Organization [facility] Address Unknown Phone Unavailable Encounter HQ Fabian(JOANNE) [phone] Date(s): 03/16/17 - 03/17/17 [facility] [address] [place] [address]- Discharge Disposition: Home or Self Care Attending Physician: Job Youngblood MD Admitting Physician: Job Youngblood MD Vital Signs 1 2 3 Most recent to oldest [Reference Range]: 152.4 cm (03/16/17 3:32 PM) Height 98.3 DegF (03/17/17 8:00 AM) 98.5 DegF (03/17/17 3:05 AM) 97.6 DegF (03/16/17 11:11 PM) Temperature Oral [96.4-99.1 DegF] 114/68 mmHg (03/17/17 8:00 AM) 124/62 mmHg (03/17/17 3:05 AM) 125/73 mmHg (03/16/17 11:11 PM) Blood Pressure [90-140/60-90 mmHg] 15 BRMIN (03/16/17 10:00 PM) 18 BRMIN (03/16/17 7:49 PM) 18 BRMIN (03/16/17 3:32 PM) Respiratory Rate [14-20 BRMIN] 68 bpm (03/17/17 8:00 AM) 79 bpm (03/16/17 3:32 PM) Peripheral Pulse Rate [60-100 bpm] 68.182 kg (03/16/17 3:32 PM) Weight 29.36 m2 (03/16/17 3:32 PM) Body Mass Index Problem List Condition Effective Dates Status Health Status Informant GERD Resolved (gastroesophageal reflux disease)(Confirmed) H/O: HTN Resolved (hypertension)(Confi rmed) Allergies, Adverse Reactions, Alerts Substance Reaction Severity Status NKDA Active Medications acetaminophen-hydrocodone 325 mg-5 mg oral tablet 2 tab, Route: PO, Drug Form: TAB, Dosing Weight 68.182, kg, Q4H, PRN Pain Score 7-10, Start date: 03/17/17 0:31:00 MEAT SOAKER, Duration: 30 day, Stop date: 04/16/17 0: 30:00 MEAT SOAKER Notes: (Same as: [place] 325/5) Do not exceed 4gm/day of acetaminophen. Start Date: 03/17/17 Stop Date: 03/18/17 Status: Discontinued chlorthalidone 25 mg oral tablet 25 mg=1 tab, PO, Daily, 0 Refill(s) Start Date: 03/16/17 Status: Ordered D5NS 1,000 mL 1,000 mL, Rate: 100 ml/hr, Infuse over: 10 hr, Route: IV, Dosing Weight 68.182 k g, Total Volume: 1,000, Start date: 03/16/17 21:42:00 MEAT SOAKER, Stop date: 03/17/17 1 :00:00 MEAT SOAKER, 1.73, m2 Start Date: 03/16/17 Stop Date: 03/17/17 Status: Completed lisinopril 10 mg oral tablet 10 mg=1 tab, PO, Daily, # 30 tab, 0 Refill(s) Start Date: 03/16/17 Status: Ordered morphine Sulfate 2 mg, 1 mL, Route: IVP, Drug form: SOLN, Q4H, Dosing Weight 68.182, kg, PRN Pain Score 7-10, Start date: 03/17/17 0:31:00 MEAT SOAKER, Duration: 30 day, Stop date: 03/20 0:30:00 MEAT SOAKER Start Date: 03/17/17 Stop Date: 03/18/17 Status: Discontinued morphine Sulfate 2 mg, Route: IV, ONCE, Dosing Weight 68.182, kg, Priority: STAT, Start date: 19:50:00 MEAT SOAKER, Stop date: 03/16/17 19:50:00 MEAT SOAKER Start Date: 03/16/17 Stop Date: 03/16/17 Status: Completed NS (Bolus) IV 1,000 mL, 1,000 ml/hr, Infuse Over: 1 hr, Route: IV, ONCE, Priority: STAT, Dosin g Weight 68.182 kg, Start date: 03/16/17 19:50:00 MEAT SOAKER, Stop date: 03/16/17 19:50 :00 MEAT SOAKER Start Date: 03/16/17 Stop Date: 03/16/17 Status: Completed ondansetron 4 mg, 2 mL, Route: IVP, Drug form: INJ, Q6H, Dosing Weight 68.182, kg, PRN Nause a & Vomiting, Start date: 03/17/17 0:31:00 MEAT SOAKER, Duration: 30 day, Stop date: 04/16/17 0:30:00 MEAT SOAKER Notes: (Same as: [place]) MEDICATION WASTE Product Size: 4 mgProduct Was mario: ___ mg Start Date: 03/17/17 Stop Date: 03/18/17 Status: Discontinued pneumococcal 13-valent vaccine 0.5 mL, Route: IM, Drug Form: INJ, Daily, Start date: 03/17/17 9:00:00 MEAT SOAKER, Dura tion: 1 doses or times, Stop date: 03/17/17 9:00:00 MEAT SOAKER Notes: Shake well prior to use (Same as: Prevnar 13) Start Date: 03/17/17 Stop Date: 03/17/17 Status: Completed Saline Flush 0.9% 10 ml, Route: IVP, Drug Form: INJ, Dosing Weight 68.182, kg, PRN, PRN Line Flush , Start date: 03/17/17 0:31:00 MEAT SOAKER, Duration: 30 day, Stop date: 04/16/17 0:30:0 0 MEAT SOAKER Notes: (Same as: BD Posiflush) Start Date: 03/17/17 Stop Date: 03/18/17 Status: Discontinued Saline Flush 0.9% 10 mL, Route: IVP, Drug Form: INJ, Dosing Weight 64.545, kg, PRN, PRN Line Flush , Start date: 03/16/17 15:39:00 MEAT SOAKER, Duration: 30 day, Stop date: 04/15/17 15:38 :00 MEAT SOAKER Notes: (Same as: BD Posiflush) Start Date: 03/16/17 Stop Date: 03/18/17 Status: Discontinued Sodium Chloride 0.9% IV 1,000 mL 1,000 mL, Rate: 75 ml/hr, Infuse over: 13.3 hr, Route: IV, Dosing Weight 68.182 kg, Total Volume: 1,000, Start date: 03/17/17 0:31:00 MEAT SOAKER, Duration: 30 day, Sto p date: 04/16/17 0:30:00 MEAT SOAKER, 1.73, m2 Start Date: 03/17/17 Stop Date: 03/18/17 Status: Discontinued Zofran 4 mg, Route: IVP, Drug form: INJ, ONCE, Dosing Weight 68.182, kg, Priority: STAT , Start date: 03/16/17 19:50:00 MEAT SOAKER, Stop date: 03/16/17 19:50:00 MEAT SOAKER Start Date: 03/16/17 Stop Date: 03/16/17 Status: Completed Results ELECTROLYTES Most recent to 1 2 oldest [Reference Range]: Sodium Lvl [135-145 141 mEq/L 137 mEq/L mEq/L] (03/17/17 5:48 AM) (03/16/17 4:22 PM) Potassium Lvl 3.4 mEq/L 3.6 mEq/L [3.5-5.1 mEq/L] *LOW* (03/16/17 4:22 PM) (03/17/17 5:48 AM) Chloride Lvl [95-109 108 mEq/L 101 mEq/L mEq/L] (03/17/17 5:48 AM) (03/16/17 4:22 PM) CO2 [24-32 mEq/L] 27 mEq/L 28 mEq/L (03/17/17 5:48 AM) (03/16/17 4:22 PM) AGAP [10.0-20.0 9.4 mEq/L 11.6 mEq/L mEq/L] *LOW* (03/16/17 4:22 PM) (03/17/17 5:48 AM) CHEM PANEL Most recent to 1 2 oldest [Reference Range]: Creatinine Lvl 0.80 mg/dL 1.01 mg/dL [0.50-1.40 mg/dL] (03/17/17 5:48 AM) (03/16/17 4:22 PM) eGFR 70 mL/min/1.73m2 1 53 mL/min/1.73m2 2 *NA* *NA* (03/17/17 5:48 AM) (03/16/17 4:22 PM) BUN [7-22 mg/dL] 16 mg/dL 22 mg/dL (03/17/17 5:48 AM) (03/16/17 4:22 PM) B/C Ratio [6-25] 20 22 (03/17/17 5:48 AM) (03/16/17 4:22 PM) Glucose Lvl [70-99 140 mg/dL 139 mg/dL mg/dL] *HI* *HI* (03/17/17 5:48 AM) (03/16/17 4:22 PM) Total Protein 5.6 g/dL 7.2 g/dL [6.4-8.4 g/dL] *LOW* (03/16/17 4:22 PM) (03/17/17 5:48 AM) Albumin Lvl [3.5-5.0 2.5 g/dL 3.2 g/dL g/dL] *LOW* *LOW* (03/17/17 5:48 AM) (03/16/17 4:22 PM) Globulin [2.7-4.2 3.1 g/dL 4.0 g/dL g/dL] (03/17/17 5:48 AM) (03/16/17 4:22 PM) A/G Ratio [0.7-1.6] 0.8 0.8 (03/17/17 5:48 AM) (03/16/17 4:22 PM) Calcium Lvl 7.5 mg/dL 8.4 mg/dL [8.5-10.5 mg/dL] *LOW* *LOW* (03/17/17 5:48 AM) (03/16/17 4:22 PM) Magnesium Lvl 1.8 mg/dL 2.0 mg/dL [1.8-2.4 mg/dL] (03/17/17 5:48 AM) (03/16/17 4:22 PM) ALT [0-65 unit/L] 20 unit/L 27 unit/L (03/17/17 5:48 AM) (03/16/17 4:22 PM) AST [0-37 unit/L] 14 unit/L 20 unit/L (03/17/17 5:48 AM) (03/16/17 4:22 PM) Alk Phos [39-136 68 unit/L 88 unit/L unit/L] (03/17/17 5:48 AM) (03/16/17 4:22 PM) Bili Total [0.2-1.3 0.3 mg/dL 0.3 mg/dL mg/dL] (03/17/17 5:48 AM) (03/16/17 4:22 PM) Lipase Lvl [73-393 178 unit/L unit/L] (03/16/17 4:22 PM) 1Result Comment: The eGFR is calculated using the [...] from the National Kidney Disease Education Program ( NKDEP) which additionally recommends that when the eGFR is used in patients with extremes of body mass index for purposes of drug dosing, the eGFR should be mul tiplied by the estimated BMI. 2Result Comment: The eGFR is calculated using the [...] from the National Kidney Disease Education Program ( NKDEP) which additionally recommends that when the eGFR is used in patients with extremes of body mass index for purposes of drug dosing, the eGFR should be mul tiplied by the estimated BMI. CARDIAC ENZYMES Most recent to 1 2 oldest [Reference Range]: Total CK [12-191 59 unit/L unit/L] (03/16/17 4:22 PM) CK MB [0.5-3.6 0.9 ng/mL ng/mL] (03/16/17 4:22 PM) CK MB Index 1.5 [0.0-2.5] (03/16/17 4:22 PM) Troponin-I <0.02 ng/mL [0.00-0.40 ng/mL] (03/16/17 4:22 PM) URINE AND STOOL Most recent to 1 2 oldest [Reference Range]: UA Turbidity [Clear] Clear (03/16/17 5:15 PM) UA Color [Yellow] Yellow *NA* (03/16/17 5:15 PM) UA pH [5.0-8.0] 5.0 (03/16/17 5:15 PM) UA Spec Grav 1.010 [<=1.030] (03/16/17 5:15 PM) UA Glucose [Negative Negative mg/dL mg/dL] *NA* (03/16/17 5:15 PM) UA Blood [Negative] Negative (03/16/17 5:15 PM) UA Ketones [Negative Negative mg/dL mg/dL] *NA* (03/16/17 5:15 PM) UA Protein [Negative Negative mg/dL mg/dL] (03/16/17 5:15 PM) UA Urobilinogen <=1.0 mg/dL [0.1-1.0 mg/dL] *NA* (03/16/17 5:15 PM) UA Bili [Negative] Negative *NA* (03/16/17 5:15 PM) UA Leuk Est Trace [Negative] *ABN* (03/16/17 5:15 PM) UA Nitrite Negative [Negative] (03/16/17 5:15 PM) UA WBC [0-5 /HPF] 2 /HPF (03/16/17 5:15 PM) UA RBC [0-2 /HPF] 2 /HPF (03/16/17 5:15 PM) UA Bacteria [None Occasional /HPF Seen /HPF] *NA* (03/16/17 5:15 PM) UA Sq Epi [Few /LPF] Moderate /LPF *ABN* (03/16/17 5:15 PM) UA Renal Epi [<=0 6 /LPF /LPF] *HI* (03/16/17 5:15 PM) HEMATOLOGY Most recent to 1 2 oldest [Reference Range]: WBC [3.7-10.4 K/CMM] 8.1 K/CMM 8.8 K/CMM (03/17/17 5:48 AM) (03/16/17 4:22 PM) RBC [4.20-5.40 3.66 M/CMM 4.34 M/CMM M/CMM] *LOW* (03/16/17 4:22 PM) (03/17/17 5:48 AM) Hgb [12.0-16.0 g/dL] 10.7 g/dL 12.6 g/dL *LOW* (03/16/17 4:22 PM) (03/17/17 5:48 AM) Hct [36.0-48.0 %] 31.5 % 37.7 % *LOW* (03/16/17 4:22 PM) (03/17/17 5:48 AM) MCV [80.0-98.0 fL] 86.1 fL 86.8 fL (03/17/17 5:48 AM) (03/16/17 4:22 PM) MCH [27.0-31.0 pg] 29.2 pg 29.0 pg (03/17/17 5:48 AM) (03/16/17 4:22 PM) MCHC [32.0-36.0 34.0 g/dL 33.4 g/dL g/dL] (03/17/17 5:48 AM) (03/16/17 4:22 PM) RDW [11.5-14.5 %] 13.4 % 13.6 % (03/17/17 5:48 AM) (03/16/17 4:22 PM) Platelet [133-450 146 K/CMM 185 K/CMM K/CMM] (03/17/17 5:48 AM) (03/16/17 4:22 PM) MPV [7.4-10.4 fL] 8.2 fL 8.6 fL (03/17/17 5:48 AM) (03/16/17 4:22 PM) Segs [45.0-75.0 %] 62.2 % 69.3 % (03/17/17 5:48 AM) (03/16/17 4:22 PM) Lymphocytes 23.3 % 18.6 % [20.0-40.0 %] (03/17/17 5:48 AM) *LOW* (03/16/17 4:22 PM) Monocytes [2.0-12.0 10.9 % 9.6 % %] (03/17/17 5:48 AM) (03/16/17 4:22 PM) Eosinophils [0.0-4.0 3.1 % 2.0 % %] (03/17/17 5:48 AM) (03/16/17 4:22 PM) Basophils [0.0-1.0 0.5 % 0.5 % %] (03/17/17 5:48 AM) (03/16/17 4:22 PM) Segs-Bands # 5.0 K/CMM 6.1 K/CMM [1.5-8.1 K/CMM] (03/17/17 5:48 AM) (03/16/17 4:22 PM) Lymphocytes # 1.9 K/CMM 1.6 K/CMM [1.0-5.5 K/CMM] (03/17/17 5:48 AM) (03/16/17 4:22 PM) Monocytes # [0.0-0.8 0.9 K/CMM 0.8 K/CMM K/CMM] *HI* (03/16/17 4:22 PM) (03/17/17 5:48 AM) Eosinophils # 0.2 K/CMM 0.2 K/CMM [0.0-0.5 K/CMM] (03/17/17 5:48 AM) (03/16/17 4:22 PM) Immunizations Given and Recorded Vaccine Date Status Refusal Reason pneumococcal 13-valent vaccine 03/17/17 Given Procedures Procedure Date Related Diagnosis Body Site Carpal tunnel decompression Procedure1 Rotator cuff repair 1Rightr rotator cuff, carpal tunnel Social History Social History Type Response Alcohol Never Smoking Status Never smoker; Exposure to Tobacco Smoke None; Cigarette Smoking Last 365 Days No; Reg Smoking Cessation Counseling No Assessment and Plan Extracted from: Title: General Surgery Author: Anmol Graf MD Date: [...] schedule. Plus she needs to be medically optimized and stronger to undergo strong. Currently she [...]
--- OUTSIDE RECORDS SUMMARY | 2018-09-13 09:15 | XMS REPORT | Summary of Care ---
Author Author [facility] Outpatient Imaging - [place] Organization [facility] Outpatient Imaging - [place] Address Unknown Phone Unavailable Encounter HQ Encntr_alienio(FIN) [phone] Date(s): 09/05/16 - 09/05/16 [facility] Outpatient Imaging - [place] [address] [place] [address] [phone] Discharge Disposition: Home or Self Care Attending [...]
[2018-09-13] MEDS ORDERED: HYDROCODONE/APAP 10MG-325MG TAB PO NR (10:00)
[2018-09-13] MEDS ORDERED: TETANUS/DIPHTHERIA TOX ADULT 0.5 ML SYR IM ONE (10:15)
== END 2018-09-13 10:44 | disposition home or self-care (01) ==
LOC: ER 09:09
DX: B02.9 Zoster without complications (principal)
CPT/HCPCS: 90471; 90714; 99283

== ENCOUNTER 2018-09-28 06:42 | Emergency (ER) | payer MEDICARE ==
[~2018-09-28] VITALS: Ht 154.9 cm; Wt 67.1 kg
--- OUTSIDE RECORDS SUMMARY | 2018-09-28 06:48 | XMS REPORT | Continuity of Care Document ---
Author Author [facility] [employer] [facility] [place] Address Unknown Phone Unavailable Care Team Providers Care Distributor Of Directories Name Role Phone [facility] [employer] Unavailable Unavailable Problems Problem Status Onset Date Classification Date Reported Comments Source INTERMITTENT SMALL BOWEL OBSTRUCTION, VE Active 03/16/2017 [facility] FLU LIKE SYMTOMS Active 03/16/2017 [facility] J20.9 - "ACUTE BRONCHITIS, UNSPECIFIED" Active 09/05/2016 [facility] [place] M25.531 - PAIN IN RIGHT WRIST Active 01/26/2016 [facility] [place] S46.091A - INJ MUSC/TEND THE ROTATOR CUF [facility] [place] M25.511 - PAIN IN RIGHT SHOULDER [facility] [place] M79.642 - PAIN IN LEFT HAND [facility]/23/[facility] [place] 719.41 - JOINT PAIN-SHLD [facility] [place] Acute renal insufficiency Active Problem 04/26/2017 [facility] Dehydration Active Problem 04/26/2017 [facility] Influenza A Active Problem 04/26/2017 [facility] Vomiting and diarrhea Active Problem 04/26/2017 [facility] Final: Pain in right shoulder 09/09/2015 EULALIO Morgana GERD (Confirmed) Resolved Problem [facility]/13[facility] (Confirmed[facility] Resolved Problem 09/13[facility]2018 [facility]OW Active [facility] [place] UNSP INTESTNL OBST, 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 04/23/2017 [facility] Guaifenesin/Dextromethorphan 5 Ml Liqd Every 6 Hours as needed for Cough Active [facility] 04/23/2017 [facility] Levofloxacin (Levaquin) 500 Mg Tablet Daily Active [facility] 04/23/2017 [facility] Metronidazole (Flagyl) 500 Mg Tablet Three Times A Day Active [facility] 04/23/2017 [facility] Oseltamivir Phosphate (Tamiflu) 75 Mg Cap Twice A Day Active [facility] 04/23/2017 [facility] Streptococcus pneumoniae serotype 1 capsular antigen diphtheria [id number] protein conjugate vaccine / Streptococcus pneumoniae serotype 14 capsular antigen diphtheria [id number] protein conjugate vaccine / Streptococcus pneumoniae serotype 18C capsular antigen d 0.5 mL, Route: IM, Drug Form: INJ, Daily, Start date: 03/17/17 9:00:00 HOISTING MACHINE OPERATOR, Duration: 1 doses or times, Stop date: 03/17/17 9:00:00 CSTNotes: Shake well prior to use (Same as: Prevnar 13) Inactive 03/17/2017 [facility] Saline Flush 0.9% 10 ml, Route: IVP, Drug Form: INJ, Dosing Weight 68.182, kg, PRN, PRN Line Flush, Start date: 03/17/17 0:31:00 HOISTING MACHINE OPERATOR, Duration: 30 day, Stop date: 04/16/17 0:30:00 CSTNotes: (Same as: BD Posiflush) No Longer Active 03/17/2017 [facility] Sodium Chloride 0.9% IV 1,000 mL 1,000 mL, Rate: 75 ml/hr, Infuse over: 13.3 hr, Route: IV, Dosing Weight 68.182 kg, Total Volume: 1,000, Start date: 03/17/17 0:31:00 HOISTING MACHINE OPERATOR, Duration: 30 day, Stop date: 04/16/17 0:30:00 HOISTING MACHINE OPERATOR, 1.73, m2 No Longer Active 03/17/2017 [facility] Ondansetron 4 mg, 2 mL, Route: IVP, Drug form: INJ, Q6H, Dosing Weight 68.182, kg, PRN Nausea & Vomiting, Start date: 03/17/17 0:31:00 HOISTING MACHINE OPERATOR, Duration: 30 day, Stop date: 04/16/17 0:30:00 CSTNotes: (Same as: Zofran) MEDICATION WASTE Product Size: 4 mg Product Wasted: ___ mg No Longer Active 03/17/2017 [facility] Acetaminophen 325 MG / Hydrocodone Bitartrate 5 MG Oral Tablet 2 tab, Route: PO, Drug Form: TAB, Dosing Weight 68.182, kg, Q4H, PRN Pain Score 7-10, Start date: 03/17/17 0:31:00 HOISTING MACHINE OPERATOR, Duration: 30 day, Stop date: 04/16/17 0:30:00 CSTNotes: (Same as: [place] 325/5) Do not exceed 4gm/day of acetaminophen. No Longer Active 03/17/2017 [facility] Morphine 2 mg, 1 mL, Route: IVP, Drug form: SOLN, Q4H, Dosing Weight 68.182, kg, PRN Pain Score 7-10, Start date: 03/17/17 0:31:00 HOISTING MACHINE OPERATOR, Duration: 30 day, Stop date: 04/16/17 0:30:00 HOISTING MACHINE OPERATOR No Longer Active 03/17/2017 [facility] lisinopril 10 mg oral tablet 10 mg=1 tab, PO, Daily, # 30 tab, 0 Refill(s) Active 03/17/2017 [facility] Chlorthalidone 25 MG Oral Tablet 25 mg=1 tab, PO, Daily, 0 Refill(s) Active 03/17/2017 [facility] D5NS 1,000 mL 1,000 mL, Rate: 100 ml/hr, Infuse over: 10 hr, Route: IV, Dosing Weight 68.182 kg, Total Volume: 1,000, Start date: 03/16/17 21:42:00 HOISTING MACHINE OPERATOR, Stop date: 03/17/17 1:00:00 HOISTING MACHINE OPERATOR, 1.73, m2 No Longer Active 03/17/2017 [facility] Zofran 4 mg, Route: IVP, Drug form: INJ, ONCE, Dosing Weight 68.182, kg, Priority: STAT, Start date: 03/16/17 19:50:00 HOISTING MACHINE OPERATOR, Stop date: 03/16/17 19:50:00 HOISTING MACHINE OPERATOR Inactive 03/17/2017 [facility] Morphine 2 mg, Route: IV, ONCE, Dosing Weight 68.182, kg, Priority: STAT, Start date: 03/16/17 19:50:00 HOISTING MACHINE OPERATOR, Stop date: 03/16/17 19:50:00 HOISTING MACHINE OPERATOR Inactive 03/17/2017 [facility] NS (Bolus) IV 1,000 mL, 1,000 ml/hr, Infuse Over: 1 hr, Route: IV, ONCE, Priority: STAT, Dosing Weight 68.182 kg, Start date: 03/16/17 19:50:00 HOISTING MACHINE OPERATOR, Stop date: 03/16/17 19:50:00 HOISTING MACHINE OPERATOR Inactive 03/17/2017 [facility] Saline Flush 0.9% 10 mL, Route: IVP, Drug Form: INJ, Dosing Weight 64.545, kg, PRN, PRN Line Flush, Start date: 03/16/17 15:39:00 HOISTING MACHINE OPERATOR, Duration: 30 day, Stop date: 04/15/17 15:38:00 CSTNotes: (Same as: BD Posiflush) No Longer Active 03/16/2017 [facility] Chlorthalidone 25 Mg Tablet, 25 Mg Oral Daily Active 12/24/2016 [facility] Omeprazole 40 Mg Capsule.dr, 40 Mg Oral Daily Active 12/24/2016 [facility] Chlorthalidone 25 Mg Tablet Daily Active [facility] Lisinopril 10 Mg Tablet Daily Active [facility] Allergies, Adverse Reactions, Alerts Substance Category Reaction Severity Reaction type Status Date Reported Comments Source No Known Medication Allergies Assertion Drug allergy EULALIO Junior Immunizations Immunization Date Given Site Status Last Updated Comments Source pneumococcal 13-valent vaccine 03/17/2017 Right Gluteus Medius completed [facility] [place] Results Order Name Results Value Reference Range Date Interpretation Comments Source Automated blood basophil count (count/volume) Automated blood basophil count (count/volume) 0.0 0.0 - 0.1 04/26/2017 [facility] Automated blood basophil count as percentage of total leukocytes Automated blood basophil count as percentage of total leukocytes 0.4 0.0 - 1.0 04/26/2017 [facility] Automated blood eosinophil count Automated blood eosinophil count 0.2 0.0 - 0.4 04/26/2017 [facility] Automated blood eosinophil count as percentage of total leukocytes Automated blood eosinophil count as percentage of total leukocytes 3.6 0.0 - 6.0 04/26/2017 [facility] Automated blood hematocrit (volume fraction) Automated blood hematocrit (volume fraction) 29.2 34.2 - 44.1 04/26/2017 [facility] Automated blood lymphocyte count as percentage ot total leukocytes Automated blood lymphocyte count as percentage ot total leukocytes 27.9 18.0 - 39.1 04/26/2017 [facility] Automated blood monocyte count as percentage of total leukocytes Automated blood monocyte count as percentage of total leukocytes 9.7 4.4 - 11.3 04/26/2017 [facility] Automated blood neutrophil count Automated blood neutrophil count 3.1 2.1 - 6.9 04/26/2017 [facility] Automated blood platelet count (count/volume) Automated blood platelet count (count/volume) 127 140 - 360 04/26/2017 [facility] Automated blood segmented neutrophil count as percentage of total leukocytes Automated blood segmented neutrophil count as percentage of total leukocytes 58.0 38.7 - 80.0 04/26/2017 [facility] Automated erythrocyte mean corpuscular hemoglobin (mass per erythrocyte) Automated erythrocyte mean corpuscular hemoglobin (mass per erythrocyte) 29.3 28 - 32 04/26/2017 [facility] Automated erythrocyte mean corpuscular hemoglobin concentration measurement (mass/volume) Automated erythrocyte mean corpuscular hemoglobin concentration measurement (mass/volume) 34.6 31 - 35 04/26/2017 [facility] Automated erythrocyte mean corpuscular volume Automated erythrocyte mean corpuscular volume 84.6 81 - 99 04/26/2017 [facility] Blood erythrocytes automated count (number/volume) Blood erythrocytes automated count (number/volume) 3.45 3.6 - 5.1 04/26/2017 [facility] Blood hemoglobin measurement (moles/volume) Blood hemoglobin measurement (moles/volume) 10.1 12.0 - 16.0 04/26/2017 [facility] Blood leukocytes automated count (number/volume) Blood leukocytes automated count (number/volume) 5.35 4.8 - 10.8 04/26/2017 [facility] Blood lymphocytes count (number/volume) Blood lymphocytes count (number/volume) 1.5 1.0 - 3.2 04/26/2017 [facility] Blood monocytes automated count (number/volume) Blood monocytes automated count (number/volume) 0.5 0.2 - 0.8 04/26/2017 [facility] Estimated glomerular filtration rate (GFR) determination Estimated glomerular filtration rate (GFR) determination >60 60 04/26/2017 [facility] Glucose measurement Glucose measurement 73 74 - 118 04/26/2017 [facility] Serum or plasma anion gap Serum or plasma anion gap 16.0 8 - 16 04/26/2017 [facility] Serum or plasma calcium measurement (mass/volume) Serum or plasma calcium measurement (mass/volume) 7.9 8.4 - 10.2 04/26/2017 [facility] Serum or plasma carbon dioxide, total measurement (moles/volume) Serum or plasma carbon dioxide, total measurement (moles/volume) 22 22 - 29 04/26/2017 [facility] Serum or plasma chloride measurement (moles/volume) Serum or plasma chloride measurement (moles/volume) 105 98 - 107 04/26/2017 [facility] Serum or plasma creatinine measurement (mass/volume) Serum or plasma creatinine measurement (mass/volume) 0.75 0.57 - 1.11 04/26/2017 [facility] Serum or plasma potassium measurement (moles/volume) Serum or plasma potassium measurement (moles/volume) 3.0 3.5 - 5.1 04/26/2017 [facility] Serum or plasma sodium measurement (moles/volume) Serum or plasma sodium measurement (moles/volume) 140 136 - 145 04/26/2017 [facility] Serum or plasma urea nitrogen measurement (mass/volume) Serum or plasma urea nitrogen measurement (mass/volume) 7 7 - 26 04/26/2017 [facility] Serum or plasma urea nitrogen/creatinine mass ratio Serum or plasma urea nitrogen/creatinine mass ratio 9 6 - 25 04/26/2017 [facility] Red Cell Distribution Width 13.3 11.7 - 14.4 04/26/2017 [facility] IM GRANULOCYTES % 0.4 0.0 - 1.0 04/26/2017 [facility] Absolute Immature Granulocyte (auto 0.02 0 - 0.1 04/26/2017 [facility] Serum or plasma creatine kinase MB measurement (mass/volume) Serum or plasma creatine kinase MB measurement (mass/volume) 1.40 0.00 - 5.00 04/22/2017 [facility] Serum or plasma creatine kinase measurement (enzymatic activity/volume) Serum or plasma creatine kinase measurement (enzymatic activity/volume) 78 29 - 168 04/22/2017 [facility] Serum or plasma troponin i.cardiac measurement by detection limit <=0.01 NG/ml (mass/volume) Serum or plasma troponin i.cardiac measurement by detection limit <=0.01 NG/ml (mass/volume) 0.009 0 - 0.300 04/22/2017 [facility] Plasma globulin measurement (mass/volume) Plasma globulin measurement (mass/volume) 2.4 2.3 - 3.5 04/22/2017 [facility] Serum or plasma alanine aminotransferase measurement (enzymatic activity/volume) Serum or plasma alanine aminotransferase measurement (enzymatic activity/volume) 13 0 - 55 04/22/2017 [facility] Serum or plasma albumin measurement (mass/volume) Serum or plasma albumin measurement (mass/volume) 2.9 3.5 - 5.0 04/22/2017 [facility] Serum or plasma albumin/globulin mass ratio Serum or plasma albumin/globulin mass ratio 1.2 0.8 - 2.0 04/22/2017 [facility] Serum or plasma alkaline phosphatase measurement (enzymatic activity/volume) Serum or plasma alkaline phosphatase measurement (enzymatic activity/volume) 52 40 - 150 04/22/2017 [facility] Serum or plasma cholesterol in HDL measurement (mass/volume) Serum or plasma cholesterol in HDL measurement (mass/volume) 35 40 - 60 04/22/2017 [facility] Serum or plasma cholesterol in LDL measurement (mass/volume) Serum or plasma cholesterol in LDL measurement (mass/volume) 82 60 - 130 04/22/2017 [facility] Serum or plasma cholesterol measurement (mass/volume) Serum or plasma cholesterol measurement (mass/volume) 130 0 - 199 04/22/2017 [facility] Serum or plasma protein measurement (mass/volume) Serum or plasma protein measurement (mass/volume) 5.3 6.5 - 8.1 04/22/2017 [facility] Serum or plasma total bilirubin measurement (mass/volume) Serum or plasma total bilirubin measurement (mass/volume) 0.4 0.2 - 1.2 04/22/2017 [facility] Serum or plasma total cholesterol/cholesterol in HDL mass ratio Serum or plasma total cholesterol/cholesterol in HDL mass ratio 3.7 3.0 - 3.6 04/22/2017 [facility] Serum or plasma triglyceride measurement (mass/volume) Serum or plasma triglyceride measurement (mass/volume) 64 0 - 149 04/22/2017 [facility] Hemoglobin A1c Percent 6.3 4.0 - 7.0 04/22/2017 [facility] Aspartate Amino Transf (AST/SGOT) 20 5 - 34 04/22/2017 [facility] Influenza virus A and B antigen identification by immunofluorescence Influenza virus A and B antigen identification by immunofluorescence POSITIVE FLU A NEGATIVE 04/21/2017 [facility] Automated urine sediment leukocyte count by microscopy (number/high power field) Automated urine sediment leukocyte count by microscopy (number/high power field) <5 0 - 5 04/21/2017 [facility] Bacteria detection in urine sediment by light microscopy Bacteria detection in urine sediment by light microscopy RARE NONE 04/21/2017 [facility] Epithelial cells detection in urine sediment by light microscopy Epithelial cells detection in urine sediment by light microscopy FEW NONE 04/21/2017 [facility] Erythrocytes detection in urine sediment by light microscopy Erythrocytes detection in urine sediment by light microscopy <5 0 - 5 04/21/2017 [facility] Hyaline casts detection in urine sediment by light microscopy Hyaline casts detection in urine sediment by light microscopy <5 0 - 1 04/21/2017 [facility] Serum or plasma magnesium measurement (mass/volume) Serum or plasma magnesium measurement (mass/volume) 1.7 1.3 - 2.1 04/21/2017 [facility] Specific gravity of Urine by Test strip Specific gravity of Urine by Test strip 1.025 1.010 - 1.025 04/21/2017 [facility] Urine clarity Urine clarity HAZY CLEAR 04/21/2017 [facility] Urine color determination Urine color determination BILL YELLOW 04/21/2017 [facility] Urine erythrocytes detection Urine erythrocytes detection NEGATIVE NEGATIVE 04/21/2017 [facility] Urine glucose detection Urine glucose detection NEGATIVE NEGATIVE 04/21/2017 [facility] Urine ketones detection by automated test strip Urine ketones detection by automated test strip NEGATIVE NEGATIVE 04/21/2017 [facility] Urine leukocyte esterase detection by dipstick Urine leukocyte esterase detection by dipstick 1+ NEGATIVE 04/21/2017 [facility] Urine nitrite detection Urine nitrite detection NEGATIVE NEGATIVE 04/21/2017 [facility] Urine pH measurement by automated test strip Urine pH measurement by automated test strip 5 5 - 7 04/21/2017 [facility] Urine protein measurement by test strip (mass/volume) Urine protein measurement by test strip (mass/volume) 1+ NEGATIVE 04/21/2017 [facility] Urine total bilirubin measurement (mass/volume) Urine total bilirubin measurement (mass/volume) 1+ NEGATIVE 04/21/2017 [facility] Urine urobilinogen measurement by test strip (mass/volume) Urine urobilinogen measurement by test strip (mass/volume) 0.2 0.2 - 1 04/21/2017 [facility] Activated partial thromboplastin time (aPTT) in platelet poor plasma bycoagulation assay Activated partial thromboplastin time (aPTT) in platelet poor plasma bycoagulation assay 35.8 23.8 - 35.5 04/21/2017 [facility] INR in Platelet poor plasma by Coagulation assay INR in Platelet poor plasma by Coagulation assay 1.03 04/21/2017 [facility] Prothrombin time (PT) in platelet poor plasma by coagulation assay Prothrombin time (PT) in platelet poor plasma by coagulation assay 14.0 11.9 - 14.5 04/21/2017 [facility] B-Type Natriuretic Peptide 40.5 0 - 100 04/21/2017 [facility] CHEM PANEL Magnesium Lvl 1.8 1.8 - 2.4 03/17/2017 [facility] CHEM PANEL eGFR 70 03/17/2017 Result Comment: [...] should be multiplied by the estimated BMI. [facility] CHEM PANEL Glucose Lvl 140 70 - 99 03/17/2017 [facility] CHEM PANEL Bili Total 0.3 0.2 - 1.3 03/17/2017 [facility] CHEM PANEL Alk Phos 68 39 - 136 03/17/2017 [facility] CHEM PANEL A/G Ratio 0.8 0.7 - 1.6 03/17/2017 [facility] CHEM PANEL AST 14 0 - 37 03/17/2017 [facility] CHEM PANEL ALT 20 0 - 65 03/17/2017 [facility] CHEM PANEL Globulin 3.1 2.7 - 4.2 03/17/2017 [facility] CHEM PANEL Calcium Lvl 7.5 8.5 - 10.5 03/17/2017 [facility] CHEM PANEL AGAP 9.4 10.0 - 20.0 [...] HEMATOLOGY Monocytes 10.9 2.0 - 12.0 03/17/2017 [facility] HEMATOLOGY Lymphocytes # 1.9 1.0 - 5.5 03/17/2017 [facility] HEMATOLOGY Eosinophils # 0.2 0.0 - 0.5 03/17/2017 [facility] HEMATOLOGY Monocytes # 0.9 0.0 - 0.8 03/17/2017 [facility] HEMATOLOGY Basophils 0.5 0.0 - 1.0 03/17/2017 [facility] HEMATOLOGY Segs-Bands # 5.0 1.5 - 8.1 03/17/2017 [facility] HEMATOLOGY Segs 62.2 45.0 - 75.0 03/17/2017 [facility] HEMATOLOGY MCV 86.1 80.0 - 98.0 03/17/2017 [facility] HEMATOLOGY MCH 29.2 27.0 - 31.0 03/17/2017 [facility] HEMATOLOGY RDW 13.4 11.5 - 14.5 03/17/2017 [facility] HEMATOLOGY MCHC 34.0 32.0 - 36.0 03/17/2017 [facility] HEMATOLOGY Hct 31.5 36.0 - 48.0 03/17/2017 [facility] HEMATOLOGY WBC 8.1 3.7 - 10.4 03/17/2017 [facility] HEMATOLOGY MPV 8.2 7.4 - 10.4 03/17/2017 [facility] HEMATOLOGY Platelet 146 133 - 450 03/17/2017 [facility] HEMATOLOGY RBC 3.66 4.20 - 5.40 03/17/2017 [facility] HEMATOLOGY Hgb 10.7 12.0 - 16.0 03/17/2017 [...] Urobilinogen <=1.0 mg/dL 0.1 - 1.0 03/16/2017 [facility] URINE AND STOOL UA Bili Negative *NA* (03/16/17 5:15 PM) Negative 03/16/2017 [facility] URINE AND STOOL UA Ketones Negative mg/dL Negative mg/dL 03/16/2017 [facility] URINE AND STOOL UA Glucose Negative mg/dL Negative mg/dL 03/16/2017 [facility] URINE AND STOOL UA Protein Negative mg/dL Negative mg/dL 03/16/2017 [facility] URINE AND STOOL UA pH 5.0 5.0 - 8.0 03/16/2017 [facility] URINE AND STOOL UA Leuk Est Trace *ABN* (03/16/17 5:15 PM) Negative 03/16/2017 [facility] URINE AND STOOL UA Nitrite Negative (03/16/17 5:15 PM) Negative 03/16/2017 [facility] URINE AND STOOL UA Blood Negative (03/16/17 5:15 PM) Negative 03/16/2017 [facility] URINE AND STOOL UA Spec Grav 1.010 <=1.030 03/16/2017 [facility] URINE AND STOOL UA Sq Epi Moderate /LPF Few /LPF 03/16/2017 [facility] URINE AND STOOL UA Turbidity Clear (03/16/17 5:15 PM) Clear 03/16/2017 [facility] URINE AND STOOL UA Color Yellow *NA* (03/16/17 5:15 PM) Yellow 03/16/2017 [facility] CARDIAC ENZYMES Troponin-I <0.02 0.00 - 0.40 03/16/2017 [facility] CARDIAC ENZYMES CK MB 0.9 0.5 - 3.6 03/16/2017 [facility] CARDIAC ENZYMES Total CK 59 12 - 191 03/16/2017 [facility] CARDIAC ENZYMES CK MB Index 1.5 0.0 - 2.5 03/16/2017 [facility] CHEM PANEL Magnesium Lvl 2.0 1.8 - 2.4 03/16/2017 [facility] CHEM PANEL Lipase Lvl 178 73 - 393 03/16/2017 [facility] CHEM PANEL eGFR 53 03/16/2017 Result Comment: [...] should be multiplied by the estimated BMI. [facility] CHEM PANEL Globulin 4.0 2.7 - 4.2 03/16/2017 [facility] CHEM PANEL A/G Ratio 0.8 0.7 - 1.6 03/16/2017 [facility] CHEM PANEL Chloride Lvl 101 95 - 109 03/16/2017 [facility] CHEM PANEL Sodium Lvl 137 135 - 145 03/16/2017 [facility] CHEM PANEL Potassium Lvl 3.6 3.5 - 5.1 03/16/2017 [facility] CHEM PANEL Bili Total 0.3 0.2 - 1.3 03/16/2017 [facility] CHEM PANEL Total Protein 7.2 6.4 - 8.4 03/16/2017 [facility] CHEM PANEL CO2 28 24 - 32 03/16/2017 [facility] CHEM PANEL Calcium Lvl 8.4 8.5 - 10.5 03/16/2017 [facility] CHEM PANEL Glucose Lvl 139 70 - 99 03/16/2017 [facility] CHEM PANEL BUN 22 7 - 22 03/16/2017 [facility] CHEM PANEL Creatinine Lvl 1.01 0.50 - 1.40 03/16/2017 [facility] CHEM PANEL AST 20 0 - 37 03/16/2017 [facility] CHEM PANEL Alk Phos 88 39 - 136 03/16/2017 [facility] CHEM PANEL ALT 27 0 - 65 03/16/2017 [facility] CHEM PANEL B/C Ratio 22 6 - 25 03/16/2017 [facility] CHEM PANEL Albumin Lvl 3.2 3.5 - 5.0 03/16/2017 [facility] CHEM PANEL AGAP 11.6 10.0 - 20.0 03/16/2017 [facility] HEMATOLOGY MPV 8.6 7.4 - 10.4 03/16/2017 [facility] HEMATOLOGY Platelet 185 133 - 450 03/16/2017 [facility] HEMATOLOGY MCV 86.8 80.0 - 98.0 03/16/2017 [facility] HEMATOLOGY MCH 29.0 27.0 - 31.0 03/16/2017 [facility] HEMATOLOGY Hct 37.7 36.0 - 48.0 03/16/2017 [facility] MCHC 33.4 32.0 - 36.0 03/16/2017 [facility] HEMATOLOGY RDW 13.6 11.5 - 14.5 03/16/2017 [facility] HEMATOLOGY WBC 8.8 3.7 - 10.4 03/16/2017 [facility] HEMATOLOGY RBC 4.34 4.20 - 5.40 03/16/2017 [facility] HEMATOLOGY Hgb 12.6 12.0 - 16.0 03/16/2017 [facility] HEMATOLOGY Segs-Bands # 6.1 1.5 - 8.1 03/16/2017 [facility] HEMATOLOGY Basophils 0.5 0.0 - 1.0 03/16/2017 [facility] HEMATOLOGY Lymphocytes # 1.6 1.0 - 5.5 03/16/2017 [facility] HEMATOLOGY Eosinophils # 0.2 0.0 - 0.5 03/16/2017 [facility] HEMATOLOGY Monocytes # 0.8 0.0 - 0.8 03/16/2017 [facility] HEMATOLOGY Eosinophils 2.0 0.0 - 4.0 03/16/2017 [facility] HEMATOLOGY Segs 69.3 45.0 - 75.0 03/16/2017 [facility] HEMATOLOGY Lymphocytes 18.6 20.0 - 40.0 03/16/2017 [facility] HEMATOLOGY Monocytes 9.6 2.0 - 12.0 03/16/2017 [facility] Reports No Data Provided for This [...] seen within the AC joint. 09/11/2018 [facility] Chest 2 views DX EXAM: Chest 2 [...] present. IMPRESSION: Nonobstructive bowel gas pattern. SL: [id number] 03/17/2017 [facility] Abdomen/Pelvis w IV contrast CT EXAM: CT [...] fluid. No adenopathy. Coronary artery calcifications. 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 SL: MIHAELA 03/16/2017 [facility] Knee 1-2 Views Bilateral DX Exam: Right [...] lower lung. Correlate for infectious etiology. 09/05/2016 [facility] Wrist complete DX Exam: Right wrist [...] Unremarkable left wrist x-ray series. 08/23/2015 E[facility] Hand 3 views DX LEFT HAND X-RAY [...] changes at the interphalangeal joints. 08/23/2015 E[facility] Elbow 3 views EXAM: ELBOW 3 VIEWS [...] Comments Source Systolic (mm Hg) 114 03/17/2017 [facility] Diastolic (mm Hg) 68 03/17/2017 [facility] Temperature Oral (F) 98.3 F 03/17/2017 [facility] Heart Rate 68 03/17/2017 [facility] Systolic (mm Hg) 124 03/17/2017 [facility] Diastolic (mm Hg) 62 03/17/2017 [facility] Temperature Oral (F) 98.5 F 03/17/2017 [facility] Temperature Oral (F) 97.6 F 03/17/2017 [facility] Systolic (mm Hg) 125 03/17/2017 [facility] Diastolic (mm Hg) 73 03/17/2017 [facility] Respitory Rate 15 03/17/2017 [facility] Respitory Rate 18 03/17/2017 [facility] Height 152.4 cm 03/16/2017 [facility] BMI Calculated 29.36 03/16/2017 [facility] Weight 68.182 03/16/2017 [facility] Respitory Rate 18 03/16/2017 [facility] Heart Rate 79 03/16/2017 [facility] Encounters Location Location Details Encounter Type Encounter Number Reason For Visit Attending Provider ADM Date DC Date Status Source [facility] [place] [facility] [id number] Fritz Terrazas 08/23/2015 08/24/2015 [facility] [place] [facility] [place] [facility] [id number] Fritz Terrazas 09/06/2015 09/07/2015 [facility] [place] [facility] [place] [facility] [id number] Claus Sam 09/16/2015 09/17/2015 [facility] [place] [facility] [place] [facility] [id number] [facility] 01/26/2016 01/27/2016 [facility] [place] [facility] [place] [facility] [id number] [facility] 09/05/2016 09/06/2016 [facility] [place] [facility] [place] [facility] [id number] [facility] 11/07/2016 11/08/2016 [facility] [place] [facility] [id number] CLAUS SAM MD 12/26/[address] [facility] Observation [id number] Kwanmarya yamilet 03/16/2017 03/17/2017 [facility] Discharged Inpatient [id number] XIANG SOOD MD 04/24/2017 04/26/2017 [facility] [place] [facility] [id number] [facility] 05/06/2018 05/07/2018 [facility] [place] [facility] [place] [facility] [id number] [facility] 09/11/2018 09/12/2018 [facility] [place] OD [id number] 719.41 - JOINT PAIN-SHLD GALE GREY Cancel [facility] [id number] LT ELBOW SHERRIE BRATH Active [facility] [place] Procedures Procedure Code Date Perfomer Comments Source Computed tomography of abdomen and pelvis with contrast 143834620 04/24/2017 [facility] CT of abdomen and pelvis without contrast 693287657 04/21/2017 [facility] KNEE ARTHROSCOPY/SURGERY 24457 12/26/2016 [facility] Carpal tunnel decompression [id number] E[facility] Procedure<sup>1</sup> [id number] Rightr rotator cuff, carpal tunnel [facility] [place] Rotator cuff repair [id number] [facility] [place] Carpal tunnel decompression [id number] [facility] Procedure<sup>1</sup> [id number] Rightr rotator cuff, carpal tunnel [facility] Rotator cuff repair [id number] [facility] Assessment and Plan Assessment and Plan Date [...] liquid diet and advance as tolerated. 03/17/2017 [facility] Plan of Care Plan of Care Date Source Discharge Date 04/26/17 12:24pm Disposition HOME, SELF-CARE Instructions/Education Provided Dehydration - Adult Prescriptions See Medication Section Referrals PCP (Internal Medicine) Order Date: 5-7 Days Entered Date: 04/23/2017 6:31am CHARLENE FINLEY MD (Gastroenterology) Order Date: 5-7 Days Entered Date: 04/24/2017 7:21am Address: [address] [place] [address] 04/26/2017 [facility] Social History Social History Date Source Social [...] Start Date Stop Date Never Smoker 04/26/2017 [facility] Social History TypeResponse Alcohol Never Smoking Status Never smoker; Exposure to Tobacco Smoke None; Cigarette Smoking Last 365 Days No; Reg Smoking Cessation Counseling No entered on: 03/16/17 03/17/2017 [facility] Social History TypeResponse Alcohol Never Smoking Status Never smoker; Exposure to Tobacco Smoke None; Cigarette Smoking Last 365 Days No; Reg Smoking Cessation Counseling No 03/17/2017 [facility] Family History No Data Provided for This Section Advance Directives Order Name Results Value Date Source Advance Directives Advance Directives Directive Response Recorded Date/Time Does the patient have an advance directive? No 04/22/17 12:00am If yes, is advance directive on file with [facility]? No 11/01/15 10:12am If not on file with [facility] will patient provide a copy? Yes 12/24/16 9:33am Do you have a Directive to Physician? No 04/21/17 7:13pm Do you have a Medical Power of Preconstruction Manager? No 04/21/17 7:13pm Do you have an [...] rights and responsibilities? Yes 04/21/17 7:13pm 04/26/2017 [facility] Functional Status No Data Provided for This Section
--- OUTSIDE RECORDS SUMMARY | 2018-09-28 06:49 | XMS REPORT | Summary of Care ---
Author Author [facility] [place] Organization [facility] [place] Address Unknown Phone Unavailable Encounter HQ Fabian(FIN) [id number] Date(s): 09/11/18 - 09/11/18 [facility] [place] [address] [place] [address] 7 [phone] Discharge Disposition: Home or Self Care Attending Physician: Fritz Terrazas MD Referring Physician: Fritz Terrazas MD Vital Signs No data available for this section Problem List Condition Effective Dates Status Health Status Informant GERD Resolved (gastroesophageal reflux disease)(Confirmed) H/O: HTN Resolved (hypertension)(Confi rmed) Allergies, Adverse Reactions, Alerts No Known Medication Allergies Medications No data available for this section [...]
[2018-09-28] MEDS ORDERED: KETOROLAC TROMETHAMINE 30 MG/ML VIAL IM STA (07:09)
[2018-09-28] MEDS ORDERED: ONDANSETRON HCL 4 MG ORAL DISINTEGRATING TAB PO ONE (07:15)
[2018-09-28] MEDS ORDERED: ACETAMINOPHEN 325 MG TAB PO ONE (07:15)
[2018-09-28] MEDS ORDERED: KETOROLAC TROMETHAMINE 30 MG/ML VIAL ONE (07:17)
--- NOTE | 2018-09-28 07:29 | NUR ---
PATIENTS ERNST LEFT, HER SON IS ON HIS WAY AND WILL BE HERE APPROX 45 MIN
--- NOTE | 2018-09-28 07:52 | Diagnostic Imaging Report ---
EXAMINATION: CHEST 2 VIEWS INDICATION: History of shingles. COMPARISON: None FINDINGS: TUBES and LINES: None. LUNGS: Lungs are well inflated. There is no evidence of pneumonia or pulmonary edema. PLEURA: No pleural effusion or pneumothorax. HEART AND MEDIASTINUM: The cardiomediastinal silhouette is unremarkable. BONES AND SOFT TISSUES: No acute osseous abnormality. UPPER ABDOMEN: No free air under the diaphragm. IMPRESSION: No acute radiographic abnormality. Signed by: Dr. Roosevelt Eng MD on 09/28/2018 7:48 AM
== END 2018-09-28 08:24 | disposition home or self-care (01) ==
LOC: ER 06:42
DX: R07.89 Other chest pain (principal); B02.29 Other postherpetic nervous system involvement; I10 Essential (primary) hypertension; K21.9 Gastro-esophageal reflux disease without esophagitis; K92.9 Disease of digestive system, unspecified
CPT/HCPCS: 71046; 99283; J1885; Q0162

== ENCOUNTER 2019-05-23 08:41 | Emergency (ER) | payer MEDICARE ==
[~2019-05-23] VITALS: Ht 154.9 cm; Wt 67.1 kg
--- OUTSIDE RECORDS SUMMARY | 2019-05-23 08:44 | XMS REPORT ---
Author Author [facility] Address Unknown Phone Unavailable Care Team Providers Care Regulatory Consultant Name Role Phone Bassam MAXWELL Unavailable Unavailable XIANG SOOD Unavailable Unavailable Problems This patient has no known problems. Allergies, Adverse Reactions, Alerts This patient has no known allergies or adverse reactions. Medications This patient has no known medications. Results Test Description Test Time Test Comments Text Results Atomic Results Result Comments CHEST 2 VIEWS 2018-09-28 07:47:00 [place] [address] Patient Name: REGAN PATEL MR #: [id number] : 1940 Age/Sex: 78/F Req #: [id number] Adm Physician: Ordered by: GEORGE MAXWELL MD Report #: [id number] Location: ER Room/Bed: Procedure: [id number] DX/CHEST 2 VIEWS Exam Date: 09/28/18 Exam Time: 0732 REPORT STATUS: Signed EXAMINATION: CHEST 2 VIEWS INDICATION: History of s hingles. COMPARISON: None FINDINGS: TUBES and LINES: None. LUNGS: Lungs are well inflated. There is no evidence of pneumonia or pulmonary edema. PLEURA: No pleural effusion or pneumothorax. HEART AND MEDIASTINUM: The cardiomediastinal silhouette is unremarkable. BONES AND SOFT TISSUES: No acute osseous abnormality. UPPER ABDOMEN: No free air under the diaphragm. IMPRESSION: No acute radiographic abnormality. Signed by: Dr. Ruchi Millan MD on 09/28/2018 7:48 AM Dictated By: RUCHI MILLAN MD 7 Transcribed By: SINDHU on 09/28/18747 COPY TO: GEORGE MAXWELL MD CT ABDOMEN/PELVIS W [place] [address] Patient Name: REGAN PATEL MR #: [id number] : 1940 Age/Sex: 77/F Req #: [id number] Adm Physician: XIANG SOOD MD Ordered by: XIANG SOOD MD Report #: [id number] Location: [facility] Room/Bed: [place] [address] Procedure: [id number] CT/CT ABDOMEN/PELVIS W Exam Date: 04/24/17 Exam Time: 1008 REPORT STATUS: Signed EXAM: CT Abdomen and Pelvis WITH contrast INDICATION: COMPARISON: CT dated 04/21/2017 TECHNIQUE: Abdomen and pelvis were scanned utilizing a multidetector helical scanner from the lung base to the pubic symphysis after administration of IV contrast. Coronal and sagittal reformations were obtained. Routine protocol was performed. Scan was performed when during portal venous phase. IV CONTRAST: 100 mL of Isovue-370 ORAL CONTRAST: Gastroview COMPLICATIONS: None RADIATION DOSE: Total DLP: 522.49 mGy*cm Estimated effective dose: (DLP x 0.015 x size factor) mSv CTDIvol has been reviewed. It is below the limits set by the Radiation Protocol Committee (RPC). FINDINGS: LINES and TUBES: None. LOWER THORAX: Trace bilateral pleural effusions with adjacent atelectasis. HEPATOBILIARY: No focal hepatic lesions. Mild common bile duct dilatation, likely due to postcholecystectomy reservoir effects. GALLBLADDER: Surgically absent. SPLEEN: No splenomegaly. PANCREAS: No focal masses or ductal dilatation. ADRENALS: No adrenal nodules KIDNEYS/URETERS: Kidneys enhance symmetrically. No hydronephrosis. No cystic or solid mass lesions. No stones. GI TRACT: No abnormal distention, wall thickening, or evidence of bowel obstruction. Colonic diverticulosis without evidence of diverticulitis. Appendix is normal. PELVIC ORGANS/BLADDER: Hysterectomy. Bladder is unremarkable. LYMPH NODES: No lymphadenopathy. VESSELS: Mild aortoiliac atherosclerotic disease. PERITONEUM / RETROPERITONEUM: No free air or fluid. BONES: Degenerative changes of spine. Unchanged grade 1 retrolisthesis of L5 in relation to L4. Unchanged mild compression deformity of L2 vertebral body superior endplate, likely degenerative. SOFT TISSUES: Multilobulated fat-containing infraumbilical ventral hernia is again seen. Small right femoral bowel containing hernia is again seen. IMPRESSION: 1. No acute inflammatory process in the abdomen/pelvis. 2. Colonic diverticulosis without evidence of diverticulitis. 3. Trace bilateral pleural effusions with adjacent atelectasis. Signed by: Dr. Yahir Reed MD on 04/24/2017 11:24 AM Dictated By: YAHIR REED MD 1124 Transcribed By: SINDHU on 04/24/17 1124 COPY TO: XIANG SOOD MD CT ABDOMEN/PELVIS [place] [address] Patient Name: REGAN PATEL MR #: [id number] : 1940 Age/Sex: 77/F Req #: [id number] Adm Physician: Ordered by: PARMINDER SHERMAN NP Report #: [id number] Location: Room/Bed: Procedure: [id number] CT/CT ABDOMEN/PELVIS WO Exam Date: 04/21/17 Exam Time: 2049 REPORT STATUS: Signed EXAM: CT ABDOMEN AND PELVIS without IV CONTRAST ORDER DATE: 04/21/2017 6:48 PM Time stamp on Exam: 2043 hours INDICATION: Left upper quadrant abdominal pain COMPARISON: None TECHNIQUE: The abdomen and pelvis were scanned using a multidetector helical scanner. Coronal and sagittal reformations were obtained. Routine protocol performed. IV Contrast: None Oral Contrast: Gastrografin CTDIvol has been reviewed. It is below the limits set by the Radiation Protocol Committee (RPC). FINDINGS: LOWER THORAX: No consolidations LIVER: No masses BILIARY: Cholecystectomy. No ductal dilation. SPLEEN: No masses PANCREAS: No masses ADRENALS: No nodules RIGHT KIDNEY: No nephroureterolithiasis or hydronephrosis. LEFT KIDNEY: No nephroureterolithiasis or hydronephrosis. GI TRACT: No wall thickening or obstruction. Sigmoid colon diverticulosis without evidence of diverticulitis. VESSELS: Mild atherosclerotic changes of the abdominal aorta without aneurysm. PERITONEUM/RETROPERITONEUM: No free air or fluid LYMPH NODES: No lymphadenopathy REPRODUCTIVE ORGANS: Not visualized BLADDER: Normal SOFT TISSUES: Right femoral hernia containing loops of small bowel without obstruction or strangulation. Fat-containing umbilical hernia. BONES: Degenerative changes of the thoracolumbar spine. Grade 1 anterolisthesis of L4 on L5. IMPRESSION: No acute findings. Sigmoid colon diverticulosis without evidence of diverticulitis. Right femoral bowel containing hernia and fat-containing umbilical hernia. No obstruction or strangulation. Signed by: Dr. Jim Boothe M.D. on 04/21/2017 9:52 PM Dictated By: JIM BOOTHE MD 51 Transcribed By: SINDHU on 04/21/172151 COPY TO: PARMINDER SHERMAN NP CHEST SINGLE (PORTABLE) [place] [address] Patient Name: REGAN PATEL MR #: [id number] : 1940 Age/Sex: 77/F Req #: [id number] [facility] Physician: Ordered by: PARMINDER SHERMAN [employer] REPA[employer] CHIEF Report #: [id number] Location: ER Room/Bed: Procedure: [id number] DX/CHEST SINGLE (PORTABLE) Exam Date: 04/21/17 Exam Time: 2047 REPORT STATUS: Signed EXAM: CHEST SINGLE (PORTABLE), AP 1 view ORDER DATE: 04/21/2017 6:18 PM Time stamp on exam: 2051 hours INDICATION: Stomach pain COMPARISON: None FINDINGS: LINES/TUBES: None LUNGS: No consolidations or edema. PLEURA: No effusions or pneumothorax. HEART AND MEDIASTINUM: Normal size and contour. BONES AND SOFT TISSUES: No acute findings. Surgical clips right upper quadrant of the abdomen. Left humeral head ligamentous screw. IMPRESSION: No acute thoracic abnormality. Signed by: Dr. Jim Boothe M.D. on 04/21/2017 9:07 PM Dictated By: JIM BOOTHE MD 06 Transcribed By: SINDHU on 04/21/172106 COPY TO: PARMINDER SHERMAN [employer] REPAIR CHIEF
[2019-05-23 09:14] LABS: BASOPHILS % 0.7 % (0.0-1.0); EOSINOPHILS # (AUTO) 0.4 (0.0-0.4); EOSINOPHILS % 6.1 % (0.0-6.0); HEMATOCRIT 36.5 % (34.2-44.1); HEMOGLOBIN 11.7 g/dL (12.0-16.0); LYMPHOCYTES # (AUTO) 1.7 (1.0-3.2); LYMPHOCYTES % 29.1 % (18.0-39.1); MEAN CORPUSCULAR HGB CONC 32.1 g/dL (31-35); MEAN CORPUSCULAR VOLUME 90.3 fL (81-99); MONOCYTES # (AUTO) 0.6 (0.2-0.8); MONOCYTES % 10.1 % (4.4-11.3); NEUTROPHILS # (AUTO) 3.2 (2.1-6.9); NEUTROPHILS % 53.7 % (38.7-80.0); PLATELET COUNT 177 x10e3/uL (140-360); RED BLOOD COUNT 4.04 x10e6/uL (3.6-5.1); RED CELL DISTRIBUTION WIDTH 13.6 % (11.7-14.4)
[2019-05-23 09:17] LABS: CLARITY,URINE CLEAR (CLEAR); COLOR,URINE YELLOW (YELLOW); KETONES,URINE NEGATIVE (NEGATIVE); LEUKOCYTE ESTERASE ,URINE NEGATIVE (NEGATIVE); NITRITE,URINE NEGATIVE (NEGATIVE); PROTEIN,URINE DIPSTICK NEGATIVE (NEGATIVE); URINE UROBILINOGEN 0.2 mg/dL (0.2 - 1)
[2019-05-23 09:18] LABS: BILIRUBIN,URINE NEGATIVE (NEGATIVE)
[2019-05-23 09:27] LABS: EPITHELIAL CELLS,URINE FEW /LPF; MUCUS,URINE FEW (RARE); RBC,URINE 0-5 /HPF (0-5); WBC,URINE (MAN) 0-5 /HPF (0-5)
[2019-05-23 09:32] LABS: ALANINE AMINOTRANSFERASE 13 IU/L (0-55); ALBUMIN 3.5 g/dL (3.5-5.0); ALBUMIN/GLOBULIN RATIO 1.2 (0.8-2.0); ALKALINE PHOSPHATASE 72 IU/L (40-150); ANION GAP 8.5 mmol/L (8-16); BLOOD UREA NITROGEN 20 mg/dL (7-26); BUN/CREATININE RATIO 25 (6-25); CALCIUM 9.1 mg/dL (8.4-10.2); CARBON DIOXIDE 30 mmol/L (22-29); CHLORIDE 107 mmol/L (98-107); EST GLOMERULAR FILTRATION RATE > 60 ML/MIN (60-); GLUCOSE 109 mg/dL (74-118); POTASSIUM 4.5 mmol/L (3.5-5.1); SODIUM 141 mmol/L (136-145)
--- NOTE | 2019-05-23 11:33 | Diagnostic Imaging Report ---
EXAM: CT Abdomen and Pelvis without contrast INDICATION: Back pain. COMPARISON: CT abdomen/pelvis without contrast 04/21/2017. TECHNIQUE: Abdomen and pelvis were scanned utilizing a multidetector helical scanner from the lung base to the pubic symphysis without administration of IV contrast. Coronal and sagittal reformations were obtained. Renal stone protocol was performed. IV CONTRAST: None. ORAL CONTRAST: None. COMPLICATIONS: None RADIATION DOSE: Total DLP: 384.9 mGy*cm Estimated effective dose: (DLP x 0.015 x size factor) mSv CTDIvol has been reviewed. It is below the limits set by the Radiation Protocol Committee (RPC). FINDINGS: LINES and TUBES: None. LOWER THORAX: Calcified granuloma in the right lower lobe. HEPATOBILIARY: No focal hepatic lesions. Mild common bile duct dilatation, likely due to postcholecystectomy reservoir effects. GALLBLADDER: Status post cholecystectomy. SPLEEN: No splenomegaly. PANCREAS: No focal masses or ductal dilatation. ADRENALS: No adrenal nodules KIDNEYS/URETERS: No evidence of hydronephrosis, mass, or stone. GI TRACT: No abnormal distention, wall thickening, or evidence of bowel obstruction. Colonic diverticulosis without evidence of diverticulitis. Appendix is normal. PELVIC ORGANS/BLADDER: Hysterectomy. Bladder is unremarkable. LYMPH NODES: No lymphadenopathy. VESSELS: Mild aortoiliac atherosclerotic disease. PERITONEUM / RETROPERITONEUM: No free air or fluid. BONES: Degenerative changes of spine. Unchanged grade 1 anterolisthesis of L4 on L5. Unchanged mild compression deformity of L2 vertebral body superior endplate, likely degenerative. SOFT TISSUES: Multilobulated fat-containing infraumbilical ventral hernia with abutting large bowel loop is again seen. Small right femoral bowel containing hernia is again seen. No evidence of incarceration. Fat-containing left-sided Bochdalek hernia. IMPRESSION: No evidence of nephrolithiasis. No acute noncontrast CT abnormality in the abdomen or pelvis. Signed by: Dr. Roosevelt Eng MD on 05/23/2019 11:30 AM
[2019-05-23 11:56] VITALS: BP 147/68
== END 2019-05-23 11:59 | disposition home or self-care (01) ==
LOC: ER 08:41
DX: S39.012A Strain of muscle, fascia and tendon of lower back, initial encounter (principal); I10 Essential (primary) hypertension; K21.9 Gastro-esophageal reflux disease without esophagitis
CPT/HCPCS: 36415; 74176; 80053; 81001; 85025; 87086; 99284

== ENCOUNTER 2019-12-23 20:37 | Emergency (ER) | payer MEDICARE ==
[~2019-12-23] VITALS: Ht 154.9 cm; Wt 67.1 kg
[2019-12-23 21:27] LABS: BASOPHILS % 0.4 % (0.0-1.0); EOSINOPHILS # (AUTO) 0.2 (0.0-0.4); EOSINOPHILS % 2.7 % (0.0-6.0); HEMATOCRIT 36.7 % (34.2-44.1); HEMOGLOBIN 11.6 g/dL (12.0-16.0); LYMPHOCYTES % 28.9 % (18.0-39.1); MEAN CORPUSCULAR HGB CONC 31.6 g/dL (31-35); MEAN CORPUSCULAR VOLUME 91.8 fL (81-99); MONOCYTES # (AUTO) 0.7 (0.2-0.8); MONOCYTES % 9.9 % (4.4-11.3); NEUTROPHILS % 57.7 % (38.7-80.0); PLATELET COUNT 191 x10e3/uL (140-360); RED CELL DISTRIBUTION WIDTH 13.1 % (11.7-14.4)
[2019-12-23] MEDS ORDERED: TRAMADOL HCL 50 MG TAB PO ONE (21:30)
[2019-12-23 21:44] LABS: ALANINE AMINOTRANSFERASE 15 IU/L (0-55); ALBUMIN 3.5 g/dL (3.5-5.0); ALBUMIN/GLOBULIN RATIO 1.1 (0.8-2.0); BLOOD UREA NITROGEN 17 mg/dL (7-26); BUN/CREATININE RATIO 18 (6-25); CALCIUM 8.8 mg/dL (8.4-10.2); CARBON DIOXIDE 28 mmol/L (22-29); CHLORIDE 106 mmol/L (98-107); CREATINE KINASE 96 IU/L (29-168); CREATININE, SERUM 0.92 mg/dL (0.57-1.11); EST GLOMERULAR FILTRATION RATE 59 ML/MIN (60-); GLUCOSE 145 mg/dL (74-118); SODIUM 143 mmol/L (136-145)
[2019-12-23 22:00] LABS: ALKALINE PHOSPHATASE 81 IU/L (40-150)
[2019-12-23 23:18] LABS: BILIRUBIN,URINE NEGATIVE (NEGATIVE); CLARITY,URINE CLEAR (CLEAR); COLOR,URINE YELLOW (YELLOW); KETONES,URINE NEGATIVE (NEGATIVE); LEUKOCYTE ESTERASE ,URINE TRACE (NEGATIVE); NITRITE,URINE NEGATIVE (NEGATIVE); PROTEIN,URINE DIPSTICK NEGATIVE (NEGATIVE); URINE UROBILINOGEN 0.2 mg/dL (0.2 - 1)
[2019-12-23 23:25] LABS: BACTERIA,URINE FEW /HPF; EPITHELIAL CELLS,URINE FEW /LPF; RBC,URINE 0-5 /HPF (0-5)
[2019-12-23 23:53] VITALS: BP 171/62
== END 2019-12-23 23:55 | disposition home or self-care (01) ==
LOC: ER 21:24
DX: G44.209 Tension-type headache, unspecified, not intractable (principal); S16.1XXA Strain of muscle, fascia and tendon at neck level, initial encounter; Y93.84 Activity, sleeping; Y92.003 Bedroom of unspecified non-institutional (private) residence as the place of occurrence of the external cause
CPT/HCPCS: 36415; 70450; 71045; 72125; 80053; 81001; 82550; 82553; 84484; 85025; 93005; 99284

== ENCOUNTER 2020-10-15 23:29 | Emergency (ER) | payer MEDICARE ==
[~2020-10-15] VITALS: Ht 154.9 cm; Wt 67.1 kg
== END 2020-10-16 01:54 | disposition home or self-care (01) ==
LOC: ER 10-16 00:10
DX: R05 Cough (principal); J30.9 Allergic rhinitis, unspecified; I10 Essential (primary) hypertension; K21.9 Gastro-esophageal reflux disease without esophagitis; Z20.822 Contact with and (suspected) exposure to COVID-19
CPT/HCPCS: 71045; 99283; U0002